=== PATIENT | female | born 1960 | race Caucasian/White ===

== ENCOUNTER 2023-02-19 12:17 | Outpatient (OUT) | payer MEDICARE, SELFPAY ==
[2023-02-19 12:47] LABS: Basophils Absolute Auto 0.1 10^3/uL (0.0-0.1); Basophils Percent Auto 1.3 % (0.2-2.0); Eosinophils Absolute Auto 0.9 10^3/uL (0.0-0.7); Eosinophils Percent Auto 12.5 % (0.9-7.0); Hematocrit 43.8 % (36.0-48.0); Hemoglobin 14.7 g/dL (12.0-16.0); Immature Granulocytes Abs Auto 0.03 10^3/uL (0.00-0.03); Immature Granulocytes Pct Auto 0.4 % (0.0-0.5); Lymphocytes Absolute Auto 1.7 10^3/uL (1.2-3.8); Lymphocytes Percent Auto 25.2 % (20.5-60.0); Mean Corpuscular HGB Conc 33.6 g/dL (29.9-35.2); Mean Corpuscular Hemoglobin 30.2 pg (26.7-34.0); Mean Corpuscular Volume 89.9 fL (81.0-99.0); Mean Platelet Volume 9.9 fL (9.5-13.5); Monocytes Absolute Auto 0.5 10^3/uL (0.3-0.8); Monocytes Percent Auto 6.9 % (1.7-12.0); Neutrophils Absolute Auto 3.6 10^3/uL (1.4-6.5); Neutrophils Percent Auto 53.7 % (43.0-75.0); Platelet Count 214 10^3/uL (150-450); Red Blood Count 4.87 10^6/uL (4.20-5.40); Red Cell Distribution Width 12.6 % (11.0-15.0); White Blood Count 6.8 10^3/uL (4.0-11.0)
[2023-02-19 14:21] LABS: Estimated Average Glucose 111 mg/dL; Glycohemoglobin A1C 5.5 % (4.5-6.2)
[2023-02-19 15:42] LABS: Alanine Aminotransferase 33 U/L (14-59); Albumin Globulin Ratio 1.3; Albumin Level 3.9 g/dL (3.4-5.0); Alkaline Phosphatase 64 U/L (46-116); Anion Gap 12.6; Aspartate Amino Transferase 15 U/L (15-37); BUN Creatinine Ratio 23.7; Bilirubin Total 0.4 mg/dL (0.2-1.0); Calcium 9.2 mg/dL (8.5-10.1); Carbon Dioxide 27.4 mmol/L (21.0-32.0); Chloride 106 mmol/L (98-107); Chol HDL Ratio 5.3; Cholesterol 205 mg/dL (<=200); Estimated GFR (African America >60 (>=60); Estimated GFR (Non-African Ame >60 (>=60); Free T3 2.59 pg/mL (2.18-3.98); Globulin 2.9 g/dL; Glucose 101 mg/dL (74-106); HDL Cholesterol 39 mg/dL (40-60); Sodium 142 mmol/L (136-145); Thyroid Stimulating Hormone 1.244 uIU/mL (0.358-3.740); Total Protein 6.8 g/dL (6.4-8.2); Triglycerides 178 mg/dL (<=150); VLDL CHOLESTEROL 35.6 mg/dL
== END 2023-02-19 12:18 | disposition home or self-care (01) ==
LOC: LAB 12:22
PROVIDERS: PCP Family Medicine; Visit Provider Family Medicine
DX: I73.9 Peripheral vascular disease, unspecified (principal); R73.9 Hyperglycemia, unspecified; E78.5 Hyperlipidemia, unspecified; R73.09 Other abnormal glucose; D64.9 Anemia, unspecified; E55.9 Vitamin D deficiency, unspecified; I10 Essential (primary) hypertension
CPT/HCPCS: 36415; 80053; 80061; 82306; 83036; 83540; 84436; 84443; 84481; 85025

== ENCOUNTER 2023-05-24 15:43 | Outpatient (OUT) | payer MEDICARE, MEDICAID, SELFPAY ==
[2023-05-24 16:13] LABS: Basophils Absolute Auto 0.1 10^3/uL (0.0-0.1); Basophils Percent Auto 1.2 % (0.2-2.0); Eosinophils Absolute Auto 0.8 10^3/uL (0.0-0.7); Eosinophils Percent Auto 11.2 % (0.9-7.0); Hematocrit 44.8 % (36.0-48.0); Hemoglobin 14.9 g/dL (12.0-16.0); Immature Granulocytes Abs Auto 0.01 10^3/uL (0.00-0.03); Immature Granulocytes Pct Auto 0.1 % (0.0-0.5); Lymphocytes Absolute Auto 1.6 10^3/uL (1.2-3.8); Lymphocytes Percent Auto 22.5 % (20.5-60.0); Mean Corpuscular HGB Conc 33.3 g/dL (29.9-35.2); Mean Corpuscular Hemoglobin 29.9 pg (26.7-34.0); Mean Corpuscular Volume 89.8 fL (81.0-99.0); Monocytes Absolute Auto 0.4 10^3/uL (0.3-0.8); Monocytes Percent Auto 5.9 % (1.7-12.0); Neutrophils Absolute Auto 4.3 10^3/uL (1.4-6.5); Neutrophils Percent Auto 59.1 % (43.0-75.0); Platelet Count 229 10^3/uL (150-450); Red Blood Count 4.99 10^6/uL (4.20-5.40); Red Cell Distribution Width 12.6 % (11.0-15.0); White Blood Count 7.3 10^3/uL (4.0-11.0)
[2023-05-24 16:27] LABS: INR <0.93; Partial Thromboplastin Time 26.5 sec (22.3-36.2); Prothrombin Time 9.7 sec (9.0-11.6)
== END 2023-05-24 15:44 | disposition home or self-care (01) ==
LOC: LAB 15:44
PROVIDERS: PCP Family Medicine; Visit Provider Family Medicine
DX: H47.022 Hemorrhage in optic nerve sheath, left eye (principal)
CPT/HCPCS: 36415; 85025; 85610; 85730

== ENCOUNTER 2023-06-25 13:00 | Outpatient (OUT) | payer MEDICARE, SELFPAY ==
--- NOTE | 2023-06-25 13:06 | MM_ITS ---
Patient Name: LINDSEY LESTER MR#: [id number] : 1960 Exam Date: 06/25/2023 Ordering Doctor: DR Quinn Zamarripa . RADIOLOGY REPORT PROCEDURE: MM TOMOSYNTHESIS DIAGNOSTIC BI, 06/25/2023, 13:10 US BREAST RT LIMITED, 06/25/2023, 12:28 COMPARISON: MG MAMM SCREEN 3D JUANITA CAD, 06/16/2021. MG MAMM SCREEN JUANITA W CAD, 05/02/2018. MG MAMM SCREEN JUANITA W CAD, 02/05/2017. MG MAMM JUANITA SCRN W CAD DIG, 03/22/2015. INDICATIONS: Breast Lump N63.0 Calculator Name NCI Breast Cancer Risk Assessment Tool 5 Year Breast Cancer Risk 2.90% Lifetime Breast Cancer Risk 14.40% Personal Breast Cancer No Personal Ovarian Cancer No Treatments None Family Cancers Mother with breast cancer at age 60; Mother with pancreatic cancer at age 60; Father with prostate cancer at age 69; Aunt-maternal with breast cancer at age 60; Aunt-maternal with neck cancer at age 50; Aunt-paternal with unknown cancer at age 80. LOCATION: [facility] BREAST COMPOSITION: Scattered areas fibroglandular density. FINDINGS: DIAGNOSTIC CATEGORY 2--BENIGN FINDING: RIGHT BREAST: No significant suspicious finding on mammography; no significant change has occurred. Ultrasound evaluation within the axillary region at site of palpable lump demonstrates normal appearing fibroglandular tissue; no suspicious findings. LEFT BREAST: No significant suspicious finding. No significant change has occurred. RECOMMENDATIONS: ROUTINE MAMMOGRAM AND CLINICAL EVALUATION IN 12 MONTHS. PLEASE NOTE: A NORMAL MAMMOGRAM DOES NOT EXCLUDE THE POSSIBILITY OF BREAST CANCER. A CLINICALLY SUSPICIOUS PALPABLE LUMP SHOULD BE BIOPSIED. Dictated by: Mario Reese M.D. on 06/25/2023 at 13:41 Approved by: Mario Reese M.D. on 06/25/2023 at 13:46
--- OUTSIDE RECORDS SUMMARY | 2023-06-25 13:06 | XMS_ITS | CCD ---
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 Name Role Phone Wiley Zamarripa Primary Care Physician MD Quinton ROB Attending Unavailable NILLKody Attending Unavailable Hoy PROVIDER, Wiley Referring Unavailabl e Hoy PROVIDER, Wiley Referring Unavailabl e NILL, Kody Abebe Attending Unavailable NILL, Kody Abebe Attending Unavailable HOY ., DR JAMA Admitting Unavailable HOY ., DR JAMA Attending Unavailable HOY ., DR JAMA Consulting Unavailable HOY ., DR JAMA Primary Care Unavailable HOY ., DR JAMA Admitting Unavailable HOY ., DR JAMA Attending Unavailable HOY ., DR JAMA Consulting Unavailable HOY ., DR JAMA Primary Care Unavailable ZIEBER, DR MICHELLE Abebe Consulting Unavailable HOY ., DR JAMA Primary Care Unavailable HIGHLANDERMELVI Admitting Unavailable ZIEBER, DR MICHELLE Abebe Consulting Unavailable HIGHLANDERMELVI Attending Unavailable HIGHLANDERMELVI Consulting Unavailable HOY ., DR JAMA Primary Care Unavailable HIGHLANDERMELVI Admitting Unavailable HIGHLANDERMELVI Attending Unavailable HIGHLMELVI PENNINGTON Consulting Unavailable HOY ., DR JAMA Admitting Unavailable HOY ., DR JAMA Attending Unavailable HOY ., DR JAMA Consulting Unavailable HOY ., DR JAMA Primary Care Unavailable NILL ., DR GATES Admitting Unavailable HOY ., DR JAMA Primary Care Unavailable NILL ., DR GATES Attending Unavailable NILL ., DR GATES Consulting Unavailable HOY ., DR JAMA Primary Care Unavailable NILL ., DR GATES Admitting Unavailable NILL ., DR GATES Attending Unavailable NILL ., DR GATES Consulting Unavailable JUAN BHATT Consulting Unavailable GEMBUS, CARLOS Consulting Unavailable HOY ., DR JAMA Admitting Unavailable HOY ., DR JAMA Attending Unavailable HOY ., DR JAMA Primary Care Unavailable Allergies Allergy Classification Reported Allergen(s) Allergy Type Date of Onset Reaction(s) Facility (2 sources) Acetaminophen / oxyCODONE; Translations: [acetaminophen-ox ycodone] Drug Allergy Vomiting (disorder) [facility] (2 sources) Azithromycin; Translations: [azithromycin] Drug Allergy Vomiting (disorder) [facility] (2 sources) Meperidine; Translations: [meperidine] Drug Allergy Projectile vomiting (disorder) [facility] (2 sources) Azithromycin Drug Allergy 3 [facility] (2 sources) Meperidine Drug Allergy 3 [facility] (1 source) oxyCODONE Drug Allergy [facility] Medications Current Medications Medication Drug Class(es) Dates Sig (Normalized) Sig (Original) aspirin 81 mg delayed release oral tablet (1 source) Platelet Aggregation Inhibitor, Nonsteroidal Anti-inflammatory Drug Start: 02-28-2022 take 1 tablet by mouth once daily aspirin 81 mg Oral EC Tab 81 mg = 1 tab(s), Oral, Daily, Refills(s) 0 Start Date: 02/28/22 Status: Ordered carvedilol 25 mg oral tablet (1 source) alpha-Adrenergic Sena, beta-Adrenergic Sena Start: 02-23-2022 take 1 tablet by mouth twice daily Coreg 25 mg Tab 25 mg = 1 tab(s), Oral, BID, Refills(s) 0 Start Date: 02/23/22 Status: Ordered diclofenac sodium 75 mg delayed release oral tablet (1 source) Nonsteroidal Anti-inflammatory Drug Start: 02-23-2022 take 1 tablet by mouth twice daily Diclofenac 75mg Tab-DR = 1 tab(s), Oral, BID, Refills(s) 0 Start Date: 02/23/22 Status: Ordered DULoxetine 60 mg delayed release oral capsule (1 source) Serotonin and Norepinephrine Reuptake Inhibitor Start: 12-26-2020 take 1 capsule by mouth once daily duloxetine 60 mg Cap-DR = 1 cap(s), Oral, Daily, (do not crush or chew), # 30 cap(s), Refills(s) 0 Start Date: 12/26/20 Status: Ordered Evening Akron Oil oral capsule (1 source) Start: 12-22-2020 Evening Akron Oil oral capsule Refill(s) 0 Start Date: 12/22/20 Status: Ordered ferrous sulfate 325 mg delayed release oral tablet (1 source) Start: 02-23-2022 take 1 tablet by mouth twice daily ferrous sulfate 325 mg oral enteric coated tablet 325 mg = 1 tab(s), Oral, BID, Refills(s) 0 Start Date: 02/23/22 Status: Ordered lamoTRIgine 25 mg chewable tablet (1 source) Mood Stabilizer, Anti-epileptic Agent Start: 12-22-2020 take 1 tablet by mouth twice daily lamotrigine 25 mg oral tablet, dispersible 25 mg = 1 tab(s), Oral, BID, # 60 tab(s), Refills(s) 0 Start Date: 12/22/20 Status: Ordered Multi Vitamin+ (1 source) Start: 12-26-2020 Multi Vitamin+ 1, Oral, Daily, Refill(s) 0 Start Date: 12/26/20 Status: Ordered omeprazole 40 mg delayed release oral capsule (1 source) Proton Pump Inhibitor Start: 12-22-2020 take 1 capsule by mouth once daily omeprazole 40 mg Cap-DR 40 mg = 1 cap(s), Oral, Daily, # 90 cap(s), Refills(s) 0 Start Date: 12/22/20 Status: Ordered piroxicam 20 mg oral capsule (1 source) Nonsteroidal Anti-inflammatory Drug Start: 12-22-2020 take 1 capsule by mouth once daily piroxicam 20 mg oral capsule 20 mg = 1 cap(s), Oral, Daily, # 30 cap(s), Refills(s) 0 Start Date: 12/22/20 Status: Ordered Simvastatin (1 source) HMG-CoA Reductase Inhibitor Start: 02-28-2022 simvastatin Refills(s) 0 Start Date: 02/28/22 Status: Ordered sucralfate 1000 mg oral tablet (1 source) Aluminum Complex Start: 12-22-2020 take 1 tablet by mouth four times daily Carafate 1 gram Tab 1 gm = 1 tab(s), Oral, QID, # 120 tab(s), Refills(s) 0 Start Date: 12/22/20 Status: Ordered 24 hr verapamil hydrochloride 360 mg extended release oral capsule (1 source) Calcium Channel Sena Start: 12-22-2020 take 1 capsule by mouth once daily verapamil 360 mg ER Cap 360 mg = 1 cap(s), Oral, Daily, # 30 cap(s), Refills(s) 0 Start Date: 12/22/20 Status: Ordered Vitamin D3 2000 intl units oral tablet (1 source) Start: 02-23-2022 take 1 tablet by mouth once daily Vitamin D3 2000 intl units oral tablet 50 mcg = 1 tab(s), Oral, Daily, Refills(s) 0 Start Date: 02/23/22 Status: Ordered Problems Active Problems Problem Classification Problem Date Documented Da te Episodic/Chronic Abdominal hernia (1 source) Hiatal hernia 12-22-2020 Episodic Abdominal pain (1 source) Flank pain 12-26-2020 Episodic Calculus of urinary tract (1 source) Kidney stone 12-26-2020 Episodic Conditions associated with dizziness or vertigo (1 source) Vertigo 12-22-2020 Episodic Diabetes mellitus with complications (5 sources) Neuropathy due to diabetes mellitus; Translations: [Type 2 diabetes mellitus with diabetic neuropathy, unspecified] Onset: 2 02-23-2022 Chronic Diabetes mellitus without complication (2 sources) Diabetes mellitus; Translations: [Type 2 diabetes mellitus without complications] Onset: 2 02-23-2022 Chronic Disorders of lipid metabolism (2 sources) Hyperlipidemia; Translations: [Hyperlipidemia, unspecified] Onset: 2 12-22-2020 Chronic Diverticulosis and diverticulitis (2 sources) Diverticulosis of colon; Translations: [Diverticulosis of large intestine without perforation or abscess without bleeding] Onset: 2 12-22-2020 Chronic Esophageal disorders (2 sources) Gastroesophageal reflux disease; Translations: [Gastro-esophageal reflux disease without esophagitis] Onset: 2 12-22-2020 Chronic Essential hypertension (2 sources) Essential hypertension; Translations: [Essential (primary) hypertension] Onset: 2 12-22-2020 Chronic Headache; including migraine (1 source) Migraine 02-23-2022 Chronic Mood disorders (1 source) Depressive disorder 12-22-2020 Chronic Nutritional deficiencies (2 sources) Vitamin D deficiency; Translations: [Vitamin D deficiency, unspecified] Onset: 2 12-22-2020 Chronic Osteoarthritis (1 source) Arthritis 12-22-2020 Chronic Other circulatory disease (4 sources) Other specified symptoms and signs involving the circulatory and respiratory systems; Translations: [OTH SPEC SX SIGNS INVLV CIRC RS] Onset: 3 Episodic Other connective tissue disease (1 source) Muscle pain 12-22-2020 Episodic Other gastrointestinal disorders (1 source) Abnormal feces; Translations: [Other fecal abnormalities] Onset: 2 Episodic Other gastrointestinal disorders (1 source) Dysphagia 12-22-2020 Episodic Other gastrointestinal disorders (1 source) Occult blood in stools 02-28-2022 Episodic Other lower respiratory disease (1 source) Dyspnea 12-22-2020 Episodic Other nervous system disorders (1 source) Dysarthria 12-22-2020 Episodic Other nutritional; endocrine; and metabolic disorders (1 source) Body mass index 30+ - obesity 02-28-2022 Chronic Other skin disorders (1 source) Excessive sweating 12-22-2020 Episodic Paralysis (1 source) Hemiplegia of nondominant side 02-23-2022 Chronic Residual codes; unclassified (1 source) Tobacco user; Translations: [Tobacco use] Onset: 2 Episodic Residual codes; unclassified (1 source) Edema of lower extremity 12-22-2020 Episodic Screening and history of mental health and substance abuse codes (1 source) Tobacco use and exposure - finding 02-28-2022 Chronic Spondylosis; intervertebral disc disorders; other back problems (3 sources) Disorder of lumbar disc; Translations: [Spondylosis] Onset: 2 12-22-2020 Chronic Substance-related disorders (6 sources) Smoker; Translations: [Nicotine dependence, cigarettes, uncomplicated] Onset: 2 12-22-2020 Chronic Unclassified (4 sources) CONTACT W/AND (SUSP) EXPOS COVID-19; Translations: [CONTACT W/AND (SUSP) EXPOS COVID-19] Onset: 2 Past or Other Problems Problem Classification Problem Date Documented Da te Episodic/Chronic Deficiency and other anemia (1 source) Anemia, unspecified; Translations: [ANEMIA UNSPECIFIED] Onset: 02-13-2022 Episodic Diabetes mellitus without complication (1 source) Other abnormal glucose; Translations: [OTHER ABNORMAL GLUCOSE] Onset: 02-13-2022 Episodic Genitourinary symptoms and ill-defined conditions (3 sources) Adolfo hematuria; Translations: [Urgent desire to urinate] Onset: 02-13-2022 12-26-2020 Episodic Other aftercare (1 source) [facility] (current) use of aspirin; Translations: [[facility] CURRENT USE OF ASPIRIN] Onset: 04-29-2022 Episodic Other aftercare (1 source) 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 (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 therapy; Translations: [OTH [facility] CURRENT DRUG THERAPY] Onset: 04-29-2022 Episodic Other connective tissue disease (4 sources) Pain in left foot; Translations: [PAIN IN LEFT FOOT] Onset: 05-09-2022 Episodic Other gastrointestinal disorders (4 sources) Other fecal abnormalities; Translations: [OTHER FECAL ABNORMALITIES] Onset: 04-25-2022 Episodic Unclassified (1 source) CONTACT W/AND (SUSP) EXPOS COVID-19; Translations: [CONTACT W/AND (SUSP) EXPOS COVID-19] Onset: 02-01-2022 Results Test Name Value Interpretation Reference Range Facility Outside Colonoscopyon 2021 Outside Colonoscopy [id number] .00CD:127 Normal [facility] Lab Reportson 04-23-2022 Lab Reports [id number] .00CD:127 Normal [facility] Covid-19 PCR (CVDTBH)on SARS-CoV-2 (COVID-19) RNA JASWANT+probe Ql (Unsp spec) Not detected Normal NOT DETECTED [facility] Comment on above: Result Comment: This test is not yet approved or cleared by the [place] FDA. When there are no FDA-approved or cleared tests available, and other criteria are met, FDA can make tests available under an emergency access mechanism called an Emergency Use Authorization (EUA). The EUA for this test is supported by the Geological E Logger of Health and Human Service's (HHS's) declaration that circumstances exist to justify the emergency use of in vitro diagnostics for the detection and/or diagnosis of the virus that causes COVID-19. This EUA will remain in effect (meaning this test can be used) for the duration of the COVID-19 declaration justifying emergency of IVDs, unless it is terminated or revoked by FDA (after which the test may no longer be used). When diagnostic testing is negative, the possibility of a false negative should be considered in the context of a patient's recent exposures and the presence of clinical signs and symptoms consistent with SARS-CoV-2. Performed By: #### [facility] ####[facility] [address] [place], [place] [address]Eg. Arias Michel Pre-Certification Formon Pre-Certification Form [id number]:127 [facility] Consent for Procedure/Surger yon 03-01-2022 Consent for Procedure/Surgery [id number] .00CD:127 [facility] Ambulatory Visit Summaryon 1 Ambulatory Visit Summary LUIS LESTER :1960 Visit Date:02/28/2022 Ambulatory Visit Instructions Your Care Team Attending Physician - Kody HARTMAN MD Primary Care Physician - Wiley Zamarripa MD Referring Physician - Wiley Zamarripa MD This Is Your Medications List Contact prescribing physician if questions or concerns aspirin (aspirin 81 mg Oral EC Tab) carvedilol (Coreg 25 mg Tab) cholecalciferol (Vitamin D3 2000 intl units oral tablet) diclofenac (Diclofenac 75mg Tab-DR) duloxetine (duloxetine 60 mg Cap-DR) evening primrose (Evening Akron Oil oral capsule) ferrous sulfate (ferrous sulfate 325 mg oral enteric coated tablet) lamotrigine (lamotrigine 25 mg oral tablet, dispersible) multivitamin (Multi Vitamin+) omeprazole (omeprazole 40 mg Cap-DR) piroxicam (piroxicam 20 mg oral capsule) simvastatin sucralfate (Carafate 1 gram Tab) verapamil (verapamil 360 mg ER Cap) Procedures Performed Arthroscopy of knee (10/23/2019), Chondroplasty (10/23/2019), Meniscectomy (10/23/2019), Appendectomy, Carpal tunnel release, section, section, Colonoscopy, Dilation and esophageal intubation, Extraction of wisdom tooth, Lumbar discectomy, ALANNA BSO - Total abdominal hysterectomy and bilateral salpingo-oophorectomy , Tonsillectomy. Discharge Vitals Heart Rate (Peripheral) 84 Respiratory Rate 16 Blood Pressure 126/82 Height 158 cm Height 62 in Weight 75.9 kg Weight 166.98 lb BMI 30.4 Medications What How Much When Instructions Unchanged aspirin (aspirin 81 mg Oral EC Tab) 1 Tablets By Mouth Every day Contact prescribing physician if questions or concerns Unchanged carvedilol (Coreg 25 mg Tab) 1 Tablets By Mouth 2 times a day Contact prescribing physician if questions or concerns Unchanged cholecalciferol (Vitamin D3 2000 intl units oral tablet) 1 Tablets By Mouth Every day Contact prescribing physician if questions or concerns Unchanged diclofenac (Diclofenac 75mg Tab-DR) 1 Tablets By Mouth 2 times a day Contact prescribing physician if questions or concerns Unchanged duloxetine (duloxetine 60 mg Cap-DR) 1 Capsules By Mouth Every day (do not crush or chew) Contact prescribing physician if questions or concerns Unchanged evening primrose (Evening Akron Oil oral capsule) Contact prescribing physician if questions or concerns Unchanged ferrous sulfate (ferrous sulfate 325 mg oral enteric coated tablet) 1 Tablets By Mouth 2 times a day Contact prescribing physician if questions or concerns Unchanged lamotrigine (lamotrigine 25 mg oral tablet, dispersible) 1 Tablets By Mouth 2 times a day Contact prescribing physician if questions or concerns Unchanged multivitamin (Multi Vitamin+) 1 By Mouth Every day Contact prescribing physician if questions or concerns Unchanged omeprazole (omeprazole 40 mg Cap-DR) 1 Capsules By Mouth Every day Contact prescribing physician if questions or concerns Unchanged piroxicam (piroxicam 20 mg oral capsule) 1 Capsules By Mouth Every day Contact prescribing physician if questions or concerns Unchanged simvastatin Contact prescribing physician if questions or concerns Unchanged sucralfate (Carafate 1 gram Tab) 1 Tablets By Mouth 4 times a day Contact prescribing physician if questions or concerns Unchanged verapamil (verapamil 360 mg ER Cap) 1 Capsules By Mouth Every day Contact prescribing physician if questions or concerns Allergies Demerol (Projectile vomiting) Percocet (Vomiting) Zithromax (Vomiting) Problems Ongoing - Any problem that you are currently receiving treatment for. Arthritis BMI 30.0-30.9,adult Depression Diabetes Diabetic neuropathy Diverticular disease of colon Dysarthria Dysphagia Dyspnea Essential hypertension Excessive sweating Flank pain GERD (gastroesophageal reflux disease) Gross hematuria Hemiplegia of nondominant side due to acute cerebrovascular accident (CVA) Hiatal hernia Hyperlipidemia Kidney stone Leg edema Lumbar disc disease Migraines Myalgia Smoker Spondylosis Urgency of urination Vertigo Vitamin D deficiency Normal [facility] CT LUNG CANCER SCREENINGon 0 02-14-2022 CT LUNG CANCER SCREENING EXAMINATION: CT LUNG CANCER SCREENING HISTORY: Tobacco dependence caused by cigarettes COMPARISON: CT chest 02/27/2019 TECHNIQUE: Axial, Coronal, and Sagittal images were created without the administration of IV contrast material. Dose reduction techniques were achieved by using automated exposure control and/or adjustment of mA and/or kV according to patient size and/or use of iterative reconstruction technique. FINDINGS: LUNGS: No visible pulmonary disease. PLEURA: No mass, effusion, or pneumothorax. VASCULATURE: No abnormality. ROGER: No mass or pathologic adenopathy. MEDIASTINUM: No mass or pathologic adenopathy. CARDIAC: No enlargement, pericardial thickening, or significant calcification. AORTA: No aneurysm or dissection. CHEST WALL: No mass or axillary adenopathy BONES: No bone lesion or fracture. LIMITED ABDOMEN: Large hiatal hernia. Stable approximately 2.0 cm left adrenal mass. OTHER: Negative. IMPRESSION: 1. Lung-RADS Category 1 Negative. No nodules and definitely benign nodules. Continue annual screening with LDCT in 12 months. Electronically authenticated by: MICHELLE ZHANG Date: 2022-02-14 14:42 Normal [facility] Physician Referralon 022 Physician Referral [id number] .[id number]:127 Normal [facility] CULTURE URINEon 02-10-2022 CULTURE URINE Isolate 1 Escherichia coli 75,000 cfu/mL of ORGANISM 1 Escherichia coli ANTIBIOTIC M.I.C RX STATUS Ampicillin >=32 R F Ampicillin/Sulbactam >=32 R F Piperacillin/Tazobact am <=4 S F Cefazolin <=4 S F Ceftazidime <=1 S F Ceftriaxone <=1 S F Ertapenem <=0.5 S F Imipenem <=0.25 S F Amikacin <=2 S F Gentamicin <=1 S F Tobramycin <=1 S F Ciprofloxacin >=4 R F Levofloxacin >=8 R F Nitrofurantoin <=16 S F Trimethoprim/Sulfamet hoxazole <=20 S F Normal [facility] Comment on above: Performed By: #### U RCX #### [facility] [address] [place] [address] Dr. Arias Michel INSULINon 02-09-2022 Insulin 16.8 uIU/mL Normal 2.6-24.9 [facility] Comment on above: Performed By: #### I NSULIN #### [facility] [address] [address] [address] Arias Michel T4, T3U, FTI LABCORPon 02-09 Free Thyroxine Index 1.7 Normal 1.2-4.9 [facility] Comment on above: Performed By: #### T HYLC #### [facility] [address] [place] [address] Dr. Arias Michel T3 Uptake 25 % Normal 24-39 [facility] Comment on above: Performed By: #### T HYLC #### [facility] [address] [place] [address] Dr. Arias Michel T4 [Mass/Vol] 6.6 ug/dL Normal 4.5-12.0 [facility] [place] [facility] Comment on above: Performed By: #### T HYLC #### [facility] [address] [place] [address] Dr. Arias Michel CBC AUTO DIFFon 02-08-2022 BASO # 0.1 103/ul Normal 0.0-0.1 [facility] Comment on above: Performed By: #### C BC ####[facility] [address] [address]Dr. Arias Michel Basophils/100 WBC (Bld) 1.7 % Normal 0.2-2.0 [facility] Comment on above: Performed By: #### C BC ####[facility] [address] [address]Dr. Arias Michel EO # 0.7 103/ul Normal 0.0-0.7 [facility] Comment on above: Performed By: #### C BC ####[facility] [address] [id number]. Arias Michel Eosinophils/100 WBC (Bld) 11.4 % Critically high 0.9-7.0 [facility] Comment on above: Performed By: #### C BC ####[facility] [address] [address]Dr. Arias Michel Erythrocyte distribution width (RBC) [Ratio] 13.1 % Normal 11.0-15.0 [facility] Comment on above: Performed By: #### C BC ####[facility] [address] [place], [place] [address]Dr. Arias Michel Hematocrit (Bld) [Volume fraction] 45.0 % Normal 36.0-48.0 [facility] Comment on above: Performed By: #### C BC ####[facility] [address] [place], [place] [address]Dr. Arias Michel Hemoglobin (Bld) [Mass/Vol] 14.8 g/dL Normal 12.0-16.0 [facility] Comment on above: Performed By: #### C BC ####[facility] [address] [address]Dr. Arias Michel IG # 0.01 10e3/ul Normal 0.00-0.03 [facility] Comment on above: Performed By: #### C BC ####[facility] [address] [place], [place] [address]Dr. Arias Michel IG % 0.2 % Normal 0.0-0.5 [facility] Comment on above: Performed By: #### C BC ####[facility] [address] [place], [place] [id number]. Arias Michel LYMPH # 1.6 103/ul Normal 1.2-3.8 [facility] Comment on above: Performed By: #### C BC ####[facility] [address] [place], [place] [address]Dr. Arias Michel Lymphocytes/100 WBC (Bld) 26.9 % Normal 20.5-60.0 [facility] Comment on above: Performed By: #### C BC ####[facility] [address] [id number]. Arias Michel MANUAL DIFF REQ NO Normal [facility] Comment on above: Performed By: #### C BC ####[facility] [address] [id number]. Arias Michel MCH (RBC) [Entitic mass] 29.7 pg Normal 26.7-34.0 [facility] Comment on above: Performed By: #### C BC ####[facility] [address] [address]Dr. Arias Michel MCHC (RBC) [Mass/Vol] 32.9 g/dL Normal 29.9-35.2 [facility] Comment on above: Performed By: #### C BC ####[facility] [address] [address]Dr. Arias Anand MCV (RBC) [Entitic vol] 90.2 fL Normal 81.0-99.0 [facility] Comment on above: Performed By: #### C BC ####[facility] [address] [address]Dr. Arias Anand MONO # 0.5 103/ul Normal 0.3-0.8 [facility] Comment on above: Performed By: #### C BC ####[facility] [address] [address]Dr. Idaniajasmyne Michel Monocytes/100 WBC (Bld) 7.8 % Normal 1.7-12.0 [facility] Comment on above: Performed By: #### C BC ####[facility] [address] [address]Dr. Arias Michel NEUT # 3.0 103/ul Normal 1.4-6.5 [facility] Comment on above: Performed By: #### C BC ####[facility] [address] [place], [place] [address]Dr. Arias Michle Neutrophils/100 WBC (Bld) 52.0 % Normal 43.0-75.0 [facility] Comment on above: Performed By: #### C BC ####[facility] [address] [id number]. Arias Michel Platelet mean volume (Bld) [Entitic vol] 9.7 fL Normal 9.5-13.5 [facility] Comment on above: Performed By: #### C BC ####[facility] [address] [id number]. Arias Michel PLT 228 103/ul Normal 150-450 [facility] Comment on above: Performed By: #### C BC ####[facility] [address] [id number]. Arias Michel RBC 4.99 106/ul Normal 4.20-5.40 [facility] Comment on above: Performed By: #### C BC ####[facility] [address] [address]Dr. Arias Michle WBC 5.8 103/ul Normal 4.0-11.0 [facility] Comment on above: Performed By: #### C BC ####[facility] [address] [address]DrToan Michel GLYCOHEMOGLOBIN A1Con 2021 ADA RECOMMENDATION SEE BELOW Normal [facility] Comment on above: Result Comment: ADA RECOMMENDED LIMIT 4.0 - 6.0 ADA THERAPEUTIC TARGET < 7.0 ACTION SUGGESTED > 7.0 Performed By: #### A 1C #### [facility] [address] [address] [address] Arias Michel Glucose [Mass/Vol] 105 mg/dL Normal [facility] Comment on above: Performed By: #### A 1C #### [facility] [address] [address] [address] Arias Michel HbA1c (Bld) [Mass fraction] 5.3 % Normal 4.5-6.2 [facility] Comment on above: Performed By: #### A 1C #### [facility] [address] [address] [address] Arias Michel IRONon 02-08-2022 Iron [Mass/Vol] 68.0 ug/dL Normal 50.0-170.[address] [facility] Comment on above: Performed By: #### I BYRON, VITAD #### [facility] [address] [address] [address] Arias Michel LIPID PROFILEon 02-08-2022 CHOL-HDL RATIO NORM SEE BELOW Normal [facility] Comment on above: Result Comment: 3.3 - 4.4 LOW RISK 4.4 - 7.1 AVERAGE RISK 7.1 - 11.0 MODERATE RISK >11.0 HIGH RISK Performed By: #### L IPID, TSH, CMP #### [facility] [address] [address] [address] Arias Michel Cholesterol [Mass/Vol] 269 mg/dL Critically high <=200 [facility] Comment on above: Performed By: #### L IPID, TSH, CMP #### [facility] [address] [address] [address] Arias Michel Cholesterol in HDL [Mass/Vol] 36 mg/dL Critically low 40-60 [facility] Comment on above: Performed By: #### L IPID, TSH, CMP #### [facility] [address] [address] [address] Arias Michel Cholesterol in LDL [Mass/Vol] 185.4 mg/dL Normal [facility] Comment on above: Performed By: #### L IPID, TSH, CMP #### [facility] [address] [address] [address] Arias Michel Cholesterol.total/Cho lesterol in HDL [Mass ratio] 7.5 {ratio} Normal [facility] Comment on above: Performed By: #### L IPID, TSH, CMP #### [facility] [address] [address] [address] Arias Michel HDL NORMAL > or = 60 mg/dl - LO W CARDIOVASCULAR RISK <40 mg/dl - HIGH CARDIOVASCULAR RISK Normal [facility] Comment on above: Performed By: #### L IPID, TSH, CMP #### [facility] [address] [address] [address] Arias Michel LDL CALC NORMAL SEE BELOW Normal [facility] Comment on above: Result Comment: <100 mg/dl OPTIMAL 100 - 129 mg/dl NEAR OR ABOVE OPTIMAL 130 - 159 mg/dl BORDERLINE HIGH 160 - 189 mg/dl HIGH >190 mg/dl VERY HIGH Performed By: #### L IPID, TSH, CMP #### [facility] [address] [address] [address] Arias Michel Triglyceride [Mass/Vol] 238 mg/dL Critically high <=150 [facility] Comment on above: Performed By: #### L IPID, TSH, CMP #### [facility] [address] [address] [address] Arias Michel VLDL CALC 47.6 mg/dL Normal [facility] Comment on above: Performed By: #### L IPID, TSH, CMP #### [facility] [address] [address] [address] Arias Michel PROF 14(COMP METB)on 022 Albumin [Mass/Vol] 3.8 g/dL Normal 3.4-5.0 [facility] Comment on above: Performed By: #### L IPID, TSH, CMP ####[facility] [address] [address]DrToan Michel Albumin/Globulin [Mass ratio] 1.3 {ratio} Normal [facility] Comment on above: Performed By: #### L IPID, TSH, CMP ####[facility] [address] [address]DrToan Michel ALP [Catalytic activity/Vol] 73 U/L Normal 46-116 [facility] Comment on above: Performed By: #### L IPID, TSH, CMP ####[facility] [address] [address]Dr. Arias Michel ALT [Catalytic activity/Vol] 27 U/L Normal 14-59 [facility] Comment on above: Performed By: #### L IPID, TSH, CMP ####[facility] [address] [address]DrToan Michel Anion gap [Moles/Vol] 9.7 mmol/L Normal [facility] Comment on above: Performed By: #### L IPID, TSH, CMP ####[facility] [address] [address]Dr. Arias Michel AST [Catalytic activity/Vol] 13 U/L Critically low 15-37 [facility] Comment on above: Performed By: #### L IPID, TSH, CMP ####[facility] [address] [address]Dr. Arias Michel Bilirubin [Mass/Vol] 0.5 mg/dL Normal 0.2-1.0 [facility] Comment on above: Performed By: #### L IPID, TSH, CMP ####[facility] [address] [place], [place] [address]Dr. Arias Michel Calcium [Mass/Vol] 8.9 mg/dL Normal 8.5-10.1 [facility] Comment on above: Performed By: #### L IPID, TSH, CMP ####[facility] [address] [place], [place] [address]Dr. Arias Michel Chloride [Moles/Vol] 105 mmol/L Normal 98-107 [facility] Comment on above: Performed By: #### L IPID, TSH, CMP ####[facility] [address] [place], [place] [address]Dr. Arias Michel CO2 [Moles/Vol] 29.2 mmol/L Normal 21.0-32.0 [facility] Comment on above: Performed By: #### L IPID, TSH, CMP ####[facility] [address] [place], [place] [address]Dr. Arias Michel Creatinine [Mass/Vol] 0.77 mg/dL Normal 0.55-1.02 [facility] Comment on above: Performed By: #### L IPID, TSH, CMP ####[facility] [address] [place], [place] [address]Dr. Arias Michel EGFR-AF NEPALESE >60 Normal >=60 [facility] Comment on above: Performed By: #### L IPID, TSH, CMP ####[facility] [address] [place], [place] [address]Dr. Arias Michel EGFR-NON AF NEPALESE >60 Normal >=60 [facility] Comment on above: Performed By: #### L IPID, TSH, CMP ####[facility] [address] [address]Dr. Arias Michel Globulin (S) [Mass/Vol] 2.9 g/dL Normal [facility] Comment on above: Performed By: #### L IPID, TSH, CMP ####[facility] [address] [address]Dr. Arias Michel Glucose [Mass/Vol] 95 mg/dL Normal 74-106 [facility] Comment on above: Performed By: #### L IPID, TSH, CMP ####[facility] [address] [place], [place] [address]Dr. Arias Michel Potassium [Moles/Vol] 3.9 mmol/L Normal 3.5-5.1 [facility] Comment on above: Performed By: #### L IPID, TSH, CMP ####[facility] [address] [place], [place] [address]Dr. Arias Michel Protein [Mass/Vol] 6.7 g/dL Normal 6.4-8.2 [facility] Comment on above: Performed By: #### L IPID, TSH, CMP ####[facility] [address] [place], [place] [address]Dr. Arias Michel Sodium [Moles/Vol] 140 mmol/L Normal 136-145 [facility] Comment on above: Performed By: #### L IPID, TSH, CMP ####[facility] [address] [place], [place] [address]Dr. Arias Michel Urea nitrogen [Mass/Vol] 13.0 mg/dL Normal 7.0-18.0 [facility] Comment on above: Performed By: #### L IPID, TSH, CMP ####[facility] [address] [place], [place] [address]Dr. Arias Michel Urea nitrogen/Creatinine [Mass ratio] 16.9 mg/mg Normal [facility] Comment on above: Performed By: #### L IPID, TSH, CMP ####[facility] [address] [address]Toan Michel TSHon 02-08-2022 TSH 1.080 uIU/mL Normal 0.358-3.740 [facility] Comment on above: Performed By: #### L IPID, TSH, CMP ####[facility] [address] [address]DrToan Michel UA RANDOM W/MICROSCOPICon BACTERIA TRACE Abnormal NONE SEEN [facility] Comment on above: Performed By: #### U AMIC #### [facility] [address] [address] [address] Arias Michel Bilirubin Ql (U) Negative Normal NEGATIVE [facility] Comment on above: Performed By: #### U AMIC #### [facility] [address] [place] [address] Dr. Arias Michel CA OX CRYSTALS MODERATE Normal [facility] Comment on above: Performed By: #### U AMIC #### [facility] [address] [place] [address] Dr. Arias Michel CAST NONE SEEN Normal NONE SEEN [facility] Comment on above: Performed By: #### U AMIC #### [facility] [address] [address] [address] Arias Michel Clarity (U) CLEAR Normal CLEAR [facility] Comment on above: Performed By: #### U AMIC #### [facility] [address] [address] [address] Arias Michel Color (U) YELLOW Normal YELLOW [facility] Comment on above: Performed By: #### U AMIC #### [facility] [address] [address] [address] Arias Michel Crystals LM Nom (Urine sed) SEEN Abnormal NONE SEEN [facility] Comment on above: Performed By: #### U AMIC #### [facility] [address] [address] [address] Arias Michel Epithelial cells LM Ql (Urine sed) FEW Abnormal NONE SEEN /RARE [facility] Comment on above: Performed By: #### U AMIC #### [facility] [address] [address] [address] Arias Michel Glucose Ql (U) Negative Normal NEGATIVE [facility] Comment on above: Performed By: #### U AMIC #### [facility] [address] [address] [address] Arias Michel Hemoglobin Ql (U) Negative Normal NEGATIVE [facility] Comment on above: Performed By: #### U AMIC #### [facility] [address] [address] [address] Arias Michel Ketones Ql (U) Negative Normal NEGATIVE [facility] Comment on above: Performed By: #### U AMIC #### [facility] [address] [address] [address] Arias Michel LEUKOCYTES TRACE Abnormal NEGATIVE [facility] Comment on above: Performed By: #### U AMIC #### [facility] [address] [address] [address] Arias Michel MUCOUS SMALL Abnormal NONE SEEN [facility] Comment on above: Performed By: #### U AMIC #### [facility] [address] [address] [address] Arias Michel Nitrite Ql (U) Negative Normal NEGATIVE [facility] Comment on above: Performed By: #### U AMIC #### [facility] [address] [address] [address] Arias Michel pH (U) 6.0 [pH] Normal 5-9 [facility] Comment on above: Performed By: #### U AMIC #### [facility] [address] [address] [address] Arias Michel RBC 2-5 Abnormal 0-2 [facility] Comment on above: Performed By: #### U AMIC #### [facility] [address] [address] [address] Arias Michel SPEC GRAVITY >=1.030 Abnormal 1.005-<=1.025 [facility] Comment on above: Performed By: #### U AMIC #### [facility] [address] [address] [address] Arias Michel UA PROTEIN Negative Normal NEGATIVE/ TRACE [facility] Comment on above: Performed By: #### U AMIC #### [facility] [address] [place] [address] Dr. Arias Michel Urobilinogen Qn (U) 0.2 {Gladis'U}/dL Normal 0.2 - 1. 0 [facility] Comment on above: Performed By: #### U AMIC #### [facility] [address] [place] [address] Dr. Arias Michel WBC 5-10 Abnormal NONE SEEN [facility] Comment on above: Performed By: #### U AMIC #### [facility] [address] [place] [address] Dr. Arias Michel VITAMIN D 25 OHon 02-08-2022 VIT D 25-OH 45.1 ng/mL Normal [facility] Comment on above: Performed By: #### I BYRON VITAD #### [facility] [address] [place] [address] Dr. Arias Michel VIT D RANGES SEE BELOW Normal [facility] Comment on above: Result Comment: <20 ng/mL Vit D deficient 20 - <30 ng/mL Vit D insufficient 30 - 100 ng/mL Vit D sufficient >100 ng/mL Potential Toxicity Performed By: #### I BYRON VITAD #### [facility] [address] [place] [address] Dr. Arias Michel Covid-19 PCR (CVDTB)on 01-18 SARS-CoV-2 (COVID-19) RNA JASWANT+probe Ql (Unsp spec) Not detected Normal NOT DETECTED [facility] Comment on above: Result Comment: This test is not yet approved or cleared by the [place] FDA. When there are no FDA-approved or cleared tests available, and other criteria are met, FDA can make tests available under an emergency access mechanism called an Emergency Use Authorization (EUA). The EUA for this test is supported by the Geological E Logger of Health and Human Service's (HHS's) declaration that circumstances exist to justify the emergency use of in vitro diagnostics for the detection and/or diagnosis of the virus that causes COVID-19. This EUA will remain in effect (meaning this test can be used) for the duration of the COVID-19 declaration justifying emergency of IVDs, unless it is terminated or revoked by FDA (after which the test may no longer be used). When diagnostic testing is negative, the possibility of a false negative should be considered in the context of a patient's recent exposures and the presence of clinical signs and symptoms consistent with SARS-CoV-2. Performed By: #### [facility] #### [facility] [address] [address] [address] Arias Michel Provider Letteron 05-05-2021 Provider Letter May 05, 2021 May 05, 2021 LUIS LESTER [address] [place] [id number] LUIS LESTER 1960 Dear Luis Lester , We have been trying to reach you with no success. You have an appointment with Dr. Rob on 05/15/2021 which will need to be rescheduled since he will be out of the office that day. Please contact the office at the number listed below to get this appointment rescheduled at your earliest convenience. Thank you for your prompt attention to this matter. Sincerely, [facility] [address], [place] [address] [facility] Vital Signs Date Time Vital Sign Value Performing Clinician Maame devi 02-28-2022 15:31-0400 Blood Pressure Location Kody [facility]ITT[employer] [facility] 02-28-2022 15:31-0400 Diastolic blood pressure 82 mm[Hg] Kody SOTOL [facility] 02-28-2022 15:31-0400 Heart rate 84 /min Kody SOTOL [facility] 02-28-2022 15:31-0400 Respiratory rate 16 /min Kody SOTOL [facility] 02-28-2022 15:31-0400 Systolic blood pressure 126 mm[Hg] Kody SOTOL [facility] Encounters Encounter Date Encounter Type Care Provider Facility Start: 05-28-2022 End: 05-29-[address] WILEY ZAMARRIPA . Facility:[facility] Start: 05-09-2022 End: 05-10-[address] WILEY ZAMARRIPA . Facility:[facility] Start: 04-28-2022 Encounter for preprocedural laboratory examination DR KODY HARTMAN . [facility] Start: 04-25-2022 End: 04-26-2022 ambulatory Kody HARTMAN Facility:[id number] Start: 04-21-2022 End: 04-22-[address] KODY HARTMAN . Facility:[facility] Start: 04-21-2022 End: 04-22-2022 Encounter for preprocedural laboratory examination DR KODY HARTMAN . Facility: Start: 02-28-2022 End: 03-01-2022 ambulatory Wiley Zamarripa PROVIDER Facility:[facility] Start: 02-28-2022 End: 02-28-2022 Patient encounter procedure Kody HARTMAN [facility] Start: 02-14-2022 End: 02-15-[address] WILEY ZAMARRIPA . Facility: Start: 02-09-2022 ambulatory Kody HARTMAN Facility :[facility] Start: 02-08-2022 End: 02-09-[address] WILEY ZAMARRIPA . Facility: Start: 02-01-2022 End: 02-01-[address] WILEY ZAMARRIPA . Facility:[facility] Start: 10-19-[address] WILEY ZAMARRIPA . Facili ty:[facility] Start: 05-15-2021 ambulatory MD Quinton ROB Fac ility:[facility] [place] Procedures Date Procedure Procedure Detail Performing Clinician Start: 10-23-2019 Arthroscopy of knee Leif HARTMAN Start: 10-23-2019 Chondrectomy of semi lunar cartilage of knee Kody HARTMAN Comment on above: subtotal medial meni scectomy Start: 10-23-2019 Chondroplasty Kody LIZ Comment on above: chondroplasty medial femoral condyle Appendectomy Kody HARTMAN section Kody NIL L section Kody NIL L Colonoscopy Kody NILL Decompression of med milagros nerve Kody NILL Dilation and inserti on of tube into esophagus Kody NILL Excision of lumbar intervertebral disc Kody NILL Extraction of wisdom tooth M ichferny SOTOL Tonsillectomy Kody NILL Total abdominal hysterectomy with bilateral salpingo-oophorectomy Kody SOTOL Immunizations Immunization Date Immunization Notes Care Provider Fa cili 08-31-2020 SARS-CoV-2 (COVID-19 ) Ad26 vaccine, recombinant Kody HARTMAN [facility] Payers Date Payer Category Payer Unknown [id number] 2.16.8 [id number] 1960 Unknown [id number] 2.16.8 [id number] 1960 Unknown [id number] 2.16.8 [id number] 1960 Unknown [id number] 2.16.84 [id number] 1962 Unknown [id number] 2.16.84 [id number] 1960 Unknown [id number] 2.16.84 [id number] 1960 Unknown [id number] 2.16.84 [id number] 1960 Unknown [id number] 2.16.84 [id number] 1962 Unknown [id number] 2.16.84 [id number] 1960 Unknown [id number] 2.16.84 [id number] 1960 Unknown [id number] 2.16.84 [id number] 1960 Unknown [id number] 2.16.84 [id number] 1957 Medicaid [id number] 1957 Self-pay [id number] 1957 Unknown [id number] Social History Date Type Detail Facility Start: 02-28-2022 Tobacco smoking status Heavy t obacco smoker (finding) [facility] [place] Tobacco smoking status Never [facility] [place] Sex Assigned At Female [facility] [place] Functional Status Date Assessment Result Facility 02-28-2022 Functional Status N/A [facility] Clinical Note 05-11-2022 Note Date & Type Note Facility 05-11-2022 Note PROCEDURE: XR FOOT L T MIN 3 VIEWS HISTORY: Pain in left foot ; third and fourth digit pain COMPARISON: None. FINDINGS: BONES:No fracture, acute abnormality, or significant arthropathy. SOFT TISSUES:No visible soft tissue swelling. EFFUSION:None visible. OTHER: Negative. IMPRESSION: 1. No acute bone abnormality or significant degenerative joint disease. Electronically authenticated by: MICHELLE ZHANG Date: 2022-05-10 22:20 [facility] Clinical Note 04-25-2022 Note Date & Type Note Facility 04-25-2022 Note OPERATIVE NOTE OPERATION DATE: 04/25/2022 PREOPERATIVE DIAGNOSIS: Positive FIT test. POSTOPERATIVE DIAGNOSIS: Sigmoid diverticulosis. PROCEDURE: Colonoscopy to cecum. SURGEON: Kody Hartman M.D. ANESTHESIA: Monitored anesthesia care. ESTIMATED BLOOD LOSS: Zero. INDICATIONS AND CONSENT: Patient is a 61-year-old female with a positive FIT test. Indications, risks, benefits, alternatives of proceeding with colonoscopy were explained extensively to the patient, including the risks of bleeding, colon perforation or anesthetic complications. All of her questions were answered. Informed consent was obtained. PROCEDURE: Patient brought to the operating room, placed in the left lateral decubitus position. Monitored anesthesia care was provided. Rectal exam was performed which showed no masses or blood. The scope was inserted into the anal canal. Under direct visualization was advanced. It was advanced to the cecum where cecal markings were clearly identified. There was noted to be a good prep with some liquid and semi-solid stool throughout the colon that was partially irrigated clear. Upon withdrawal of the scope, mucosal surfaces were carefully examined. There were no mass lesions or polyps. No inflammatory changes or ulcerations. There was moderate sigmoid diverticulosis without inflammatory changes or scarring. The scope was retroflexed in the anal canal. There was no significant hemorrhoidal disease. Scope was then withdrawn. Patient tolerated procedure well, was sent to recovery room in good condition. CC: Wiley Zamarripa M.D. [facility] Note 02-28-2022 Note Date & Type Note Facility 02-28-2022 Note Chief Complaint consultation for positive FIT test [facility] Staff 61 year old female presents on consultation from Dr. Zamarripa for positive FIT test. Denies abdominal or rectal pain. No rectal bleeding or change in bowel habits. Denies nausea or vomiting. No unexplained weight loss. Last colonoscopy completed 03/2017- normal. No known family history of colon cancer. History of Present Illness 61 yo female with h/o DMII, htn, hyperlipidemia, h/o CVA, GERD, referred for positive FIT test; denies change in bms or gross blood in stools, no abd complaints; last EGD and colonoscopy 2016 with hiatal hernia and internal hemorrhoid; abdominal operations significant for appendectomy, , laparoscopy and hysterectomy; on baby asa daily; smokes daily. Review of Systems PHQ Score Initial Depression Screen Score: 0 ROS - Provider Constitutional: no fever, no sweats, no weight loss. Eyes: no glasses, no blurred vision, no visual loss. ENMT: no dentures, no hoarseness, no swallowing difficulties, no hearing loss, no ear infection(s), no nose bleeds. Cardiovascular: normal blood pressure, no chest pain, regular heartbeat, no heart murmur. Respiratory: no shortness of breath, no cough, no asthma, no wheezing. Gastrointestinal: no nausea, no vomiting, no diarrhea, no constipation, no blood in stool, no change in bowel habits, no abdominal pain, no hepatitis. Genitourinary: no kidney stones, no urine infection, no dysuria. Musculoskeletal: no pain, no weakness. Skin: no changing moles, no rash, no skin lumps. Neurologic: no seizures, no epilepsy, no headache. Psychiatric: no emotional or psychiatric problem. Heme/Lymph: no bleeding problems, no anemia, no blood clots, no transfusions. Allergy/Immunologic: no swollen lymph nodes/glands, no IV drug abuse. Other: Additional ROS info: Except as noted in the above Review of Systems and in the History of Present Illness, all other systems have been reviewed and are negative or noncontributory. Physical Exam Vitals & Measurements HR: 84(Peripheral) RR: 16 BP: 126/82 HT: 62 in HT: 158 cm WT: 75.9 kg WT: 166.98 lb BMI: 30.4 HEENT: normal conjunctiva, sclera clear, no scleral icterus, EOM intact, PERRLA, oral mucosa moist without lesions. Neck: trachea midline, no mass, symmetric, no thyromegaly or nodules, no adenopathy Respiratory: lungs CTA, respirations non labored. Cardiovascular: regular rate and rhythm, no murmur, no pedal edema or varicosities. Gastrointestinal: obese, soft, non distended, no tenderness, no masses, no palpable hernias, diastasis recti no, no hepatosplenomegaly; normal bs Lymphatic: no cervical adenopathy, Musculoskeletal: normal gait, digits and nails without infection, nodes, cyanosis, clubbing. Skin: no rashes, no lesions, no ulcers, no subcutaneous nodules, induration. Psychiatric/Neuro: oriented to time, place, person, judgement normal, affect appropriate for age, insight intact, no focal deficits. Tests: labs reviewed,, review of old records completed, Discussed surgical options, risks, and possible complications with patient. Assessment/Plan 1. Positive FIT (fecal immunochemical test) (R19.5: Other fecal abnormalities) plan colonoscopy under anesthesia for further evaluation, informed consent obtained. 2. Tobacco use (Z72.0: Tobacco use) We strongly recommend to quit tobacco use. Cigarette smoking harms nearly every organ of the body, causes many diseases, and reduces the health of smokers in general. Quitting smoking lowers your risk for smoking-related diseases and can add years to your life. We encourage you to visit www.smokefree.gov access to helpful resources including free telephone support. If you decide on prescription treatment to help you quit, your family doctor would be happy to provide these. Follow-up No qualifying data available Problem List/Past Medical History Ongoing Arthritis BMI 30.0-30.9,adult Depression Diabetes Diabetic neuropathy Diverticular disease of colon Dysarthria Dysphagia Dyspnea Essential hypertension Excessive sweating Flank pain GERD (gastroesophageal reflux disease) Gross hematuria Hemiplegia of nondominant side due to acute cerebrovascular accident (CVA) Hiatal hernia Hyperlipidemia Kidney stone Leg edema Lumbar disc disease Migraines Myalgia Positive FIT (fecal immunochemical test) Smoker Spondylosis Tobacco use Urgency of urination Vertigo Vitamin D deficiency Historical No qualifying data Procedure/Surgical History Arthroscopy of knee (10/23/2019), Chondroplasty (10/23/2019), Meniscectomy (10/23/2019), Appendectomy, Carpal tunnel release, section, section, Colonoscopy, Dilation and esophageal intubation, Extraction of wisdom tooth, Lumbar discectomy, ALANNA BSO - Total abdominal hysterectomy and bilateral salpingo-oophorectomy, Tonsillectomy. Medications aspirin 81 mg Oral EC Tab, 81 mg= 1 tab(s), Oral, Daily Carafate 1 gram Tab, 1 gm= (more content not included)... [facility] Comment on above: Result Comment: Elec tronically Signed By: LYN SOLIZ, Kody Abebe\.shirley\Date and Time Signed: 02/28/22 16:40 EDT Evaluation + Plan note Note Date & Type Note Facility Evaluation + Plan note No data available for this section [facility] Discharge instructions Note Date & Type Note Facility Hospital Discharge instructions No data available for this section General [facility] [place] Progress note Note Date & Type Note Facility Progress note No data available for this section General [facility] [place] Summary Purpose Family History No Family History Records FoundNo Family History Records Found Advance Directives No Advanced Directives Records FoundNo Advanced Directives Records Found Additional Source Comments Patient Care team informatio n (unrecognized section and content) Personnel Name: Wiley Zamarripa MD Address: Address: [facility] [place] [address]- INFORMATION SOURCE (unrecogn ized section and content) DATE CREATED AUTHOR 04/30/2022 Ahsan Munoz [facility] DATE CREATED AUTHOR AUTHOR'S CHANCE ATION 08/23/2022 [facility] FOR RECORDS PERTAINING TO PATIENTS WHO ARE OR HAVE BEEN ENROLLED IN A CHEMICAL DEPENDENCY/SUBSTANCEABUSE PROGRAM, SOME INFORMATION MAY BE OMITTED. This clinical summary was aggregated from multiple sources. Caution should be exercised in using it in the provision of clinical care. This summary normalizes information from multiple sources, and as a consequence, information in this document may materially change the coding, format and clinical context of patient data. In addition, data may be omitted in some cases. CLINICAL DECISIONS SHOULD BE BASED ON THE PRIMARY CLINICAL RECORDS. [facility] [employer] [facility]. provides no warranty or guarantee of the accuracy or completeness of information in this document.
--- NOTE | 2023-06-25 13:26 | US_ITS ---
Patient Name: LINDSEY LESTER MR#: [id number] : 1960 Exam Date: 06/25/2023 Ordering Doctor: DR Quinn Zamarripa . RADIOLOGY REPORT PROCEDURE: MM TOMOSYNTHESIS DIAGNOSTIC BI, 06/25/2023, 13:10 US BREAST RT LIMITED, 06/25/2023, 12:28 COMPARISON: MG MAMM SCREEN 3D JUANITA CAD, 06/16/2021. MG MAMM SCREEN JUANITA W CAD, 05/02/2018. MG MAMM SCREEN JUANITA W CAD, 02/05/2017. MG MAMM JUANITA SCRN W CAD DIG, 03/22/2015. INDICATIONS: Breast Lump N63.0 Calculator Name NCI Breast Cancer Risk Assessment Tool 5 Year Breast Cancer Risk 2.90% Lifetime Breast Cancer Risk 14.40% Personal Breast Cancer No Personal Ovarian Cancer No Treatments None Family Cancers Mother with breast cancer at age 60; Mother with pancreatic cancer at age 60; Father with prostate cancer at age 69; Aunt-maternal with breast cancer at age 60; Aunt-maternal with neck cancer at age 50; Aunt-paternal with unknown cancer at age 80. LOCATION: [facility] BREAST COMPOSITION: Scattered areas fibroglandular density. FINDINGS: DIAGNOSTIC CATEGORY 2--BENIGN FINDING: RIGHT BREAST: No significant suspicious finding on mammography; no significant change has occurred. Ultrasound evaluation within the axillary region at site of palpable lump demonstrates normal appearing fibroglandular tissue; no suspicious findings. LEFT BREAST: No significant suspicious finding. No significant change has occurred. RECOMMENDATIONS: ROUTINE MAMMOGRAM AND CLINICAL EVALUATION IN 12 MONTHS. PLEASE NOTE: A NORMAL MAMMOGRAM DOES NOT EXCLUDE THE POSSIBILITY OF BREAST CANCER. A CLINICALLY SUSPICIOUS PALPABLE LUMP SHOULD BE BIOPSIED. Dictated by: Mario Reese M.D. on 06/25/2023 at 13:41 Approved by: Mario Reese M.D. on 06/25/2023 at 13:46
--- NOTE | 2023-06-25 13:40 | CT_ITS ---
The [address] [address] Patient Name: LINDSEY LESTER MRN: [id number] date: 1960 Sex: F Assigned Patient Location: MAMM Current Patient Location: [facility] Accession/Order Number: [id number] Exam Date: 06/25/2023 13:36 Report Date: 06/25/2023 15:16 At the request of: WILEY COLUNGA Procedure: CT lung screening low-dose EXAMINATION: CT lung screening low-dose HISTORY: Cigarette Smoking F17.210 COMPARISON: CT LUNG CANCER SCREENING 02/14/2022 TECHNIQUE: Axial, Coronal, and Sagittal images were created without the administration of IV contrast material. Dose reduction techniques were achieved by using automated exposure control and/or adjustment of mA and/or kV according to patient size and/or use of iterative reconstruction technique. FINDINGS: LUNGS: No visible pulmonary disease. PLEURA: No mass, effusion, or pneumothorax. VASCULATURE: No abnormality. ROGER: No mass or pathologic adenopathy. MEDIASTINUM: No mass or pathologic adenopathy. CARDIAC: No enlargement, pericardial thickening, or pericardial effusion. AORTA: No aneurysm or dissection. CHEST WALL: No mass or axillary adenopathy BONES: Stable kyphosis and slight anterior wedging of T9 and T10 vertebral bodies. LIMITED ABDOMEN: Large hiatal hernia. Stable 2 cm left adrenal mass. The Limited images of the upper abdomen. OTHER: Negative. CT/CT lung screening low-dose IMPRESSION: 1. Lung-RADS Category 1 Negative. No nodules and definitely benign nodules. Continue annual screening with LDCT in 12 months. The Electronically authenticated by: MICHELLE ZHANG Date: 06/25/2023 15:16
== END 2023-06-25 13:01 | disposition home or self-care (01) ==
LOC: MAMMO 13:00
PROVIDERS: PCP Family Medicine; Visit Provider Family Medicine
DX: N63.31 Unspecified lump in axillary tail of the right breast (principal); F17.210 Nicotine dependence, cigarettes, uncomplicated
CPT/HCPCS: 71271; 76642; 77066; G0279

== ENCOUNTER 2023-08-09 12:35 | Outpatient (OUT) | payer MEDICARE, SELFPAY ==
--- NOTE | 2023-08-09 12:40 | MR_ITS ---
The [address] [address] Patient Name: LINDSEY LESTER MRN: [id number] date: 1960 Sex: F Assigned Patient Location: MRI Current Patient Location: MRI Accession/Order Number: [id number] Exam Date: 08/09/2023 13:00 Report Date: 08/09/2023 13:55 At the request of: ENRICO ANNE Procedure: MR head/brain wo con MR head/brain wo con HISTORY: transient ischemic attack G45.9 COMPARISON: None. TECHNIQUE: Multi-planar, multi-sequence brain MRI was performed without IV contrast. FINDINGS: Brain volume: Normal. Sagittal midline structures: Normal. Ventricles: Normal. Acute ischemic changes: None. Hemorrhage: None. Masses/edema: None. Magana-white: Negative. White matter: A few punctate subcortical white matter hyperintensities. Vessels: Normal. Extra-axial: None. Calvarium/scalp: Negative. Skull base: Small left mastoid effusion. Visualized sinuses/orbits: Negative. Visualized upper neck: Negative. MR/MR head/brain wo con IMPRESSION: 1. No acute ischemia or intracranial hemorrhage. Electronically authenticated by: NIGEL PINZON Date: 08/09/2023 13:55
--- OUTSIDE RECORDS SUMMARY | 2023-08-09 12:41 | XMS_ITS | CCD ---
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 Name Role Phone Wiley Zamarripa Primary Care Physician [phone] MD Quinton ROB Attending Unavailable NILL, Kody Abebe Attending Unavailable Hoy PROVIDER, Wiley Referring Unavailabl e Hoy PROVIDER, Wiley Referring Unavailabl e NILL, Kody Abebe Attending Unavailable NILL, Kody R Attending Unavailable HOY ., DR JAMA Admitting [...] HOY ., DR JAMA Primary Care Unavailable HIGHLANDER, PETER D Admitting Unavailable ZIEBER, DR MICHELLE Abebe Consulting Unavailable HIGHLANDER, MELVI Nelson Attending Unavailable HIGHLANDER, PETER D Consulting Unavailable HOY ., DR JAMA Primary Care Unavailable HIGHLANDER, PETER D Admitting Unavailable HIGHLANDER, MELVI Nelson Attending Unavailable HIGHLANDER PETER Omar Consulting Unavailable HOY ., DR JAMA Admitting Unavailable HOY ., DR JAMA Attending Unavailable HOY ., DR JAMA Consulting Unavailable HOY ., DR JAMA Primary Care Unavailable NILL ., DR GATES Admitting Unavailable HOY ., DR JAMA Primary Care Unavailable NILL ., DR GATSE Attending Unavailable NILL ., DR GATES Consulting [...] Drug Allergy Vomiting (disorder) [facility] (2 sources) Azithromycin; Translations: [azithromycin] Drug Allergy Vomiting (disorder) [facility] (2 sources) Meperidine; Translations: [meperidine] Drug Allergy Projectile vomiting (disorder) [facility] (2 sources) Azithromycin Drug Allergy 3 [facility] (2 sources) Meperidine Drug Allergy 3 [facility] (1 source) oxyCODONE Drug Allergy [facility] Medications Current Medications Medication Drug Class(es) [...] 0 Start Date: 12/26/20 Status: Ordered Evening Tacoma Oil oral capsule (1 source) Start: 12-22-2020 Evening Tacoma Oil oral capsule Refill(s) 0 Start Date: [...] Start Date: 12/22/20 Status: Ordered Vitamin D3 1999 intl units oral tablet (1 source) Start: [...] 02-13-2022 12-26-2020 Episodic Other aftercare (1 source) prison (current) use of aspirin; Translations: [[facility] CURRENT USE OF ASPIRIN] Onset: 04-29-2022 Episodic Other aftercare (1 source) Other long term care social worker (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 therapy; Translations: [OTH [facility] CURRENT DRUG THERAPY] Onset: 04-29-2022 Episodic Other [...] Range Facility Outside Colonoscopyon 2021 Outside Colonoscopy [id number] .00CD:127 Normal [facility] Lab Reportson 04-23-2022 Lab Reports [id number] .00CD:127 Normal [facility]on SARS-CoV-2 (COVID-19) RNA JASWANT+probe Ql (Unsp spec) Not detected Normal NOT DETECTED [facility] Comment on above: Result Comment: This test is not yet approved or cleared by the [place] FDA. When there are no FDA-approved or cleared tests available, and other criteria are met, FDA can make tests available under an emergency access mechanism called an Emergency Use Authorization (EUA). The EUA for this test is supported by the [employer] Stitcher of Health and Human Service's (HHS's) declaration [...] consistent with SARS-CoV-2. Performed By: #### C [facility] ####[facility] [address] [place], [place] [address]Qf. Arias Michel Pre-Certification Formon Pre-Certification Form [id number] 1.00CD:127 Normal [facility] Consent for Procedure/Surger yon 03-01-2022 Consent for Procedure/Surgery [id number] .00CD:127 [facility] Ambulatory Visit Summaryon 1 Ambulatory Visit Summary LUIS LESTER :1960 Visit Date:02/28/2022 Ambulatory Visit Instructions Your Care Team Attending Physician - LYN SOLIZ, Kody Abebe Primary Care Physician - Marilou SOLIZ, Wiley Referring Physician - Wiley Zamarripa MD This Is Your Medications List Contact prescribing physician if questions or concerns aspirin (aspirin 81 mg Oral EC Tab) carvedilol (Coreg 25 mg Tab) cholecalciferol (Vitamin D3 2000 intl units oral tablet) diclofenac (Diclofenac 75mg Tab-DR) duloxetine (duloxetine 60 mg Cap-DR) evening primrose (Evening Tacoma Oil oral capsule) ferrous sulfate (ferrous sulfate [...] questions or concerns Unchanged evening primrose (Evening Tacoma Oil oral capsule) Contact prescribing physician if [...] of urination Vertigo Vitamin D deficiency Normal [facility] CT LUNG CANCER SCREENINGon 0 02-14-2022 CT [...] by: MICHELLE ZHANG Date: 2022-02-14 14:42 Normal [facility] Physician Referralon 022 Physician Referral [id number] .[id number]:127 Normal [facility] CULTURE URINEon 02-10-2022 CULTURE URINE Isolate 1 [...] F Trimethoprim/Sulfamet hoxazole <=20 S F Normal [facility] Comment on above: Performed By: #### U RCX #### [facility] [address] [address] [address] Arias Michel INSULINon 02-09-2022 Insulin 16.8 uIU/mL Normal 2.6-24.9 [facility] Comment on above: Performed By: #### I NSULIN #### [facility] [address] [address] [address] Arias Michel T4, T3U, FTI LABCORPon 02-09 Free Thyroxine Index 1.7 Normal 1.2-4.9 [facility] Comment on above: Performed By: #### T HYLC #### [facility] [address] [place] [address] Dr. Arias Michel T3 Uptake 25 % Normal 24-39 [facility] Comment on above: Performed By: #### T HYLC #### [facility] [address] [place] [address] Dr. Arias Michel T4 [Mass/Vol] 6.6 ug/dL Normal 4.5-12.0 [facility] Comment on above: Performed By: #### T HYLC #### [facility] [address] [place] [address] Dr. Arias Michel CBC AUTO DIFFon 02-08-2022 BASO # 0.1 103/ul Normal 0.0-0.1 [facility] Comment on above: Performed By: #### C BC ####[facility] [address] [place], [place] [address]Dr. Arias Michel Basophils/100 WBC (Bld) 1.7 % Normal 0.2-2.0 [facility] Comment on above: Performed By: #### C BC ####[facility] [address] [place], [place] [address]Dr. Arias Michel EO # 0.7 103/ul Normal 0.0-0.7 [facility] Comment on above: Performed By: #### C BC ####[facility] [address] [address]Dr. Arias Michel Eosinophils/100 WBC (Bld) 11.4 % Critically high 0.9-7.0 [facility] Comment on above: Performed By: #### C BC ####[facility] Rx[address] [place], [place] [address]Dr. Arias Michel Erythrocyte distribution width (RBC) [Ratio] 13.1 % Normal 11.0-15.0 [facility] Comment on above: Performed By: #### C BC ####[facility] [address] [place], [place] [address]Dr. Arias Michel Hematocrit (Bld) [Volume fraction] 45.0 % Normal 36.0-48.0 [facility] Comment on above: Performed By: #### C BC ####[facility] [address] [place], [place] [address]Dr. Arias Michel Hemoglobin (Bld) [Mass/Vol] 14.8 g/dL Normal 12.0-16.0 [facility] Comment on above: Performed By: #### C BC ####[facility] [address] [place], [place] [address]Dr. Arias Michel IG # 0.01 10e3/ul Normal 0.00-0.03 [facility] Comment on above: Performed By: #### C BC ####[facility] [address] [place], [place] [address]Dr. Arias Michel IG % 0.2 % Normal 0.0-0.5 [facility] Comment on above: Performed By: #### C BC ####[facility] [address]fs[address] [place], [place] [address]Dr. Arias Michel LYMPH # 1.6 103/ul Normal 1.2-3.8 [facility] Comment on above: Performed By: #### C BC ####[facility] X[address] [place], [place] [address]Dr. Arias Michel Lymphocytes/100 WBC (Bld) 26.9 % Normal 20.5-60.0 [facility] Comment on above: Performed By: #### C BC ####[facility] [address] [place], [place] [address]Dr. Arias Michel MANUAL DIFF REQ NO Normal [facility] Comment on above: Performed By: #### C BC ####[facility] [address] [address]Dr. Arias Michel MCH (RBC) [Entitic mass] 29.7 pg Normal 26.7-34.0 [facility] Comment on above: Performed By: #### C BC ####[facility] [address] [place], [place] [address]Dr. Arias Michel MCHC (RBC) [Mass/Vol] 32.9 g/dL Normal 29.9-35.2 [facility] Comment on above: Performed By: #### C BC ####[facility] [address] [place], [place] [address]Dr. Arias Michel MCV (RBC) [Entitic vol] 90.2 fL Normal 81.0-99.0 [facility] Comment on above: Performed By: #### C BC ####[facility] [address] [place], [place] [address]Dr. Arias Michel MONO # 0.5 103/ul Normal 0.3-0.8 [facility] Comment on above: Performed By: #### C BC ####[facility] F[address] [place], [place] [address]Dr. Arias Michel Monocytes/100 WBC (Bld) 7.8 % Normal 1.7-12.0 [facility] Comment on above: Performed By: #### C BC ####[facility] [address] [place], [place] [address]Dr. Arias Michel NEUT # 3.0 103/ul Normal 1.4-6.5 [facility] Comment on above: Performed By: #### C BC ####[facility] [address] [place], [place] [address]Dr. Arias Michel Neutrophils/100 WBC (Bld) 52.0 % Normal 43.0-75.0 [facility] Comment on above: Performed By: #### C BC ####[facility] [address] [place], [place] [address]Dr. Arias Michel Platelet mean volume (Bld) [Entitic vol] 9.7 fL Normal 9.5-13.5 [facility] Comment on above: Performed By: #### C BC ####[facility] [address] [address]DrToan Michel PLT 228 103/ul Normal 150-450 [facility] Comment on above: Performed By: #### C BC ####[facility] [address] [address]Dr. Arias Michel RBC 4.99 106/ul Normal 4.20-5.40 [facility] Comment on above: Performed By: #### C BC ####[facility] [address] [address]DrToan Michel WBC 5.8 103/ul Normal 4.0-11.0 [facility] Comment on above: Performed By: #### C BC ####[facility] [address] [address]Dr. Arias Michel GLYCOHEMOGLOBIN A1Con 2021 ADA RECOMMENDATION SEE BELOW Normal [facility] Comment on above: Result Comment: ADA RECOMMENDED LIMIT 4.0 - 6.0 ADA THERAPEUTIC TARGET < 7.0 ACTION SUGGESTED > 7.0 Performed By: #### A 1C #### [facility] [address] [place] [address] Dr. Arias Michel Glucose [Mass/Vol] 105 mg/dL Normal [facility] Comment on above: Performed By: #### A 1C #### [facility] [address] [address] [address] Arias Michel HbA1c (Bld) [Mass fraction] 5.3 % Normal 4.5-6.2 [facility] Comment on above: Performed By: #### A 1C #### [facility] [address] [place] [address] Dr. Arias Michel IRONon 02-08-2022 Iron [Mass/Vol] 68.0 ug/dL Normal 50.0-170.0 [facility] Comment on above: Performed By: #### CALLY GARCIA #### [facility] [address] [address] [address] Arias Michel LIPID PROFILEon 02-08-2022 CHOL-HDL RATIO NORM SEE BELOW Normal [facility] Comment on above: Result Comment: 3.3 - 4.4 LOW RISK 4.4 - 7.1 AVERAGE RISK 7.1 - 11.0 MODERATE RISK >11.0 HIGH RISK Performed By: #### L IPID, TSH, CMP #### [facility] [address] [address] [address] Arias Michel Cholesterol [Mass/Vol] 269 mg/dL Critically high <=200 [facility] Comment on above: Performed By: #### L IPID, TSH, CMP #### [facility] [address] [address] [address] Arias Michel Cholesterol in HDL [Mass/Vol] 36 mg/dL Critically low 40-60 [facility] Comment on above: Performed By: #### L IPID, TSH, CMP #### [facility] [address] [address] [address] Arias Michel Cholesterol in LDL [Mass/Vol] 185.4 mg/dL Normal [facility] Comment on above: Performed By: #### L IPID, TSH, CMP #### [facility] [address] [address] [address] Arias Michel Cholesterol.total/Cho lesterol in HDL [Mass ratio] 7.5 {ratio} Normal [facility] Comment on above: Performed By: #### L IPID, TSH, CMP #### [facility] [address] [address] [address] Arias Michel HDL NORMAL > or = 60 mg/dl - LO W CARDIOVASCULAR RISK <40 mg/dl - HIGH CARDIOVASCULAR RISK Normal [facility] Comment on above: Performed By: #### L IPID, TSH, CMP #### [facility] [address] [place] [address] Dr. Arias Michel LDL CALC NORMAL SEE BELOW Normal [facility] Comment on above: Result Comment: <100 mg/dl OPTIMAL 100 - 129 mg/dl NEAR OR ABOVE OPTIMAL 130 - 159 mg/dl BORDERLINE HIGH 160 - 189 mg/dl HIGH >190 mg/dl VERY HIGH Performed By: #### L IPID, TSH, CMP #### [facility] [address] [address] [address] Arias Michel Triglyceride [Mass/Vol] 238 mg/dL Critically high <=150 [facility] Comment on above: Performed By: #### L IPID, TSH, CMP #### [facility] [address] [address] [address] Arias Michel VLDL CALC 47.6 mg/dL Normal [facility] Comment on above: Performed By: #### L IPID, TSH, CMP #### [facility] [address] [address] [address] Arias Michel PROF 14(COMP METB)on 022 Albumin [Mass/Vol] 3.8 g/dL Normal 3.4-5.0 [facility] Comment on above: Performed By: #### L IPID, TSH, CMP ####[facility] [address] [address]DrToan Michel Albumin/Globulin [Mass ratio] 1.3 {ratio} Normal [facility] Comment on above: Performed By: #### L IPID, TSH, CMP ####[facility] [address] [address]DrToan Michel ALP [Catalytic activity/Vol] 73 U/L Normal 46-116 [facility] Comment on above: Performed By: #### L IPID, TSH, CMP ####[facility] [address] [address]DrToan Michel ALT [Catalytic activity/Vol] 27 U/L Normal 14-59 [facility] Comment on above: Performed By: #### L IPID, TSH, CMP ####[facility] [address] [address]DrToan Michel Anion gap [Moles/Vol] 9.7 mmol/L Normal [facility] Comment on above: Performed By: #### L IPID, TSH, CMP ####[facility] [address] [address]DrToan Michel AST [Catalytic activity/Vol] 13 U/L Critically low 15-37 [facility] Comment on above: Performed By: #### L IPID, TSH, CMP ####[facility] [address] [address]Dr. Arias Michel Bilirubin [Mass/Vol] 0.5 mg/dL Normal 0.2-1.0 [facility] Comment on above: Performed By: #### L IPID, TSH, CMP ####[facility] [address] [place], [place] [address]Dr. Arias Michel Calcium [Mass/Vol] 8.9 mg/dL Normal 8.5-10.1 [facility] Comment on above: Performed By: #### L IPID, TSH, CMP ####[facility] [address] [place], [place] [address]Dr. Arias Michel Chloride [Moles/Vol] 105 mmol/L Normal 98-107 [facility] Comment on above: Performed By: #### L IPID, TSH, CMP ####[facility] [address] [place], [place] [address]Dr. Arias Michel CO2 [Moles/Vol] 29.2 mmol/L Normal 21.0-32.0 [facility] Comment on above: Performed By: #### L IPID, TSH, CMP ####[facility] [address] [place], [place] [address]Dr. Arias Michel Creatinine [Mass/Vol] 0.77 mg/dL Normal 0.55-1.02 [facility] Comment on above: Performed By: #### L IPID, TSH, CMP ####[facility] [address] [address]Dr. Arias Michel EGFR-AF FILIPINO >60 Normal >=60 [facility] Comment on above: Performed By: #### L IPID, TSH, CMP ####[facility] [address] [address]Dr. Arias Michel EGFR-NON AF FILIPINO >60 Normal >=60 [facility] Comment on above: Performed By: #### L IPID, TSH, CMP ####[facility] [address] [address]Dr. Arias Michel Globulin (S) [Mass/Vol] 2.9 g/dL Normal [facility] Comment on above: Performed By: #### L IPID, TSH, CMP ####[facility] [address] [address]Dr. Arias Michel Glucose [Mass/Vol] 95 mg/dL Normal 74-106 [facility] Comment on above: Performed By: #### L IPID, TSH, CMP ####[facility] [address] [place], [place] [address]Dr. Arias Michel Potassium [Moles/Vol] 3.9 mmol/L Normal 3.5-5.1 [facility] Comment on above: Performed By: #### L IPID, TSH, CMP ####[facility] [address] [place], [place] [address]Dr. Arias Michel Protein [Mass/Vol] 6.7 g/dL Normal 6.4-8.2 [facility] Comment on above: Performed By: #### L IPID, TSH, CMP ####[facility] [address] [place], [place] [address]Dr. Arias Michel Sodium [Moles/Vol] 140 mmol/L Normal 136-145 [facility] Comment on above: Performed By: #### L IPID, TSH, CMP ####[facility] [address] [place], [place] [address]Dr. Arias Michel Urea nitrogen [Mass/Vol] 13.0 mg/dL Normal 7.0-18.0 [facility] Comment on above: Performed By: #### L IPID, TSH, CMP ####[facility] [address] [place], [place] [address]Dr. Arias Michel Urea nitrogen/Creatinine [Mass ratio] 16.9 mg/mg Normal [facility] Comment on above: Performed By: #### L IPID, TSH, CMP ####[facility] [address] [place], [place] [address]Dr. Arias Michel TSHon 02-08-2022 TSH 1.080 uIU/mL Normal 0.358-3.740 [facility] Comment on above: Performed By: #### L IPID, TSH, CMP ####[facility] [address] [address]Dr. Arias Michel UA RANDOM W/MICROSCOPICon BACTERIA TRACE Abnormal NONE SEEN [facility] Comment on above: Performed By: #### U AMIC #### [facility] [address] [address] [address] Arias Michel Bilirubin Ql (U) Negative Normal NEGATIVE [facility] Comment on above: Performed By: #### U AMIC #### [facility] [address] [place] [address] Dr. Arias Michel CA OX CRYSTALS MODERATE Normal [facility] Comment on above: Performed By: #### U AMIC #### [facility] [address] [place] [address] Dr. Arias Michel CAST NONE SEEN Normal NONE SEEN [facility] Comment on above: Performed By: #### U AMIC #### [facility] [address] [address] [address] Arias Michel Clarity (U) CLEAR Normal CLEAR [facility] Comment on above: Performed By: #### U AMIC #### [facility] [address] [place] [address] Dr. Arias Michel Color (U) YELLOW Normal YELLOW [facility] Comment on above: Performed By: #### U AMIC #### [facility] [address] [place] [address] Dr. Arias Michel Crystals LM Nom (Urine sed) SEEN Abnormal NONE SEEN [facility] Comment on above: Performed By: #### U AMIC #### [facility] [address] [place] [address] Dr. Arias Michel Epithelial cells LM Ql (Urine sed) FEW Abnormal NONE SEEN /RARE [facility] Comment on above: Performed By: #### U AMIC #### [facility] [address] [place] [address] Dr. Arias Michel Glucose Ql (U) Negative Normal NEGATIVE [facility] Comment on above: Performed By: #### U AMIC #### [facility] [address] [address] [address] Arias Michel Hemoglobin Ql (U) Negative Normal NEGATIVE [facility] Comment on above: Performed By: #### U AMIC #### [facility] [address] [address] [address] Arias Michel Ketones Ql (U) Negative Normal NEGATIVE [facility] Comment on above: Performed By: #### U AMIC #### [facility] [address] [address] [address] Arias Michel LEUKOCYTES TRACE Abnormal NEGATIVE [facility] Comment on above: Performed By: #### U AMIC #### [facility] [address] [address] [address] Arias Michel MUCOUS SMALL Abnormal NONE SEEN [facility] Comment on above: Performed By: #### U AMIC #### [facility] [address] [address] [address] Arias Michel Nitrite Ql (U) Negative Normal NEGATIVE [facility] Comment on above: Performed By: #### U AMIC #### [facility] [address] [address] [address] Arias Michel pH (U) 6.0 [pH] Normal 5-9 [facility] Comment on above: Performed By: #### U AMIC #### [facility] [address] [address] [address] Arias Michel RBC 2-5 Abnormal 0-2 [facility] Comment on above: Performed By: #### U AMIC #### [facility] [address] [address] [address] Arias Michel SPEC GRAVITY >=1.030 Abnormal 1.005-<=1.025 [facility] Comment on above: Performed By: #### U AMIC #### [facility] [address] [place] [address] Dr. Arias Michel UA PROTEIN Negative Normal NEGATIVE/ TRACE [facility] Comment on above: Performed By: #### U AMIC #### [facility] [address] [address] [address] Arias Michel Urobilinogen Qn (U) 0.2 {Gladis'U}/dL Normal 0.2 - 1. 0 [facility] Comment on above: Performed By: #### U AMIC #### [facility] [address] [address] [address] Arias Michel WBC 5-10 Abnormal NONE SEEN [facility] Comment on above: Performed By: #### U AMIC #### [facility] [address] [address] [address] Arias Michel VITAMIN D 25 OHon 02-08-2022 VIT D 25-OH 45.1 ng/mL Normal [facility] Comment on above: Performed By: #### I BYRON, VITAD #### [facility] [address] [place] [address] Dr. Arias Michel VIT D RANGES SEE BELOW Normal [facility] [facility] Comment on above: Result Comment: <20 ng/mL Vit D deficient 20 - <30 ng/mL Vit D insufficient 30 - 100 ng/mL Vit D sufficient >100 ng/mL Potential Toxicity Performed By: #### I BYRON, VITAD #### [facility] [address] [place] [address] Dr. Arias Michel Covid-19 PCR (CVDTB)on 01-18 SARS-CoV-2 (COVID-19) RNA JASWANT+probe Ql (Unsp spec) Not detected Normal NOT DETECTED [facility] Comment on above: Result Comment: This test is not yet approved or cleared by the [place] FDA. When there are no FDA-approved or cleared tests available, and other criteria are met, FDA can make tests available under an emergency access mechanism called an Emergency Use Authorization (EUA). The EUA for this test is supported by the [employer] of Health and Human Service's (HHS's) declaration [...] consistent with SARS-CoV-2. Performed By: #### [facility] #### [facility] [address] [address] [address] Arias Michel Provider Letteron 05-05-2021 Provider Letter May 05, 2021 May 05, 2021 LUIS LESTER [address] [place] [id number] LUIS LESTER 1960 Dear Luis Lester , [...] to this matter. Sincerely, [facility] [address], [place] [address] [facility] Vital Signs Date Time Vital Sign Value Performing Clinician Maame devi 02-28-2022 15:31-0400 Blood Pressure Location [employer] [facility] 02-28-2022 15:31-0400 Diastolic blood pressure 82 mm[Hg] Kody SOTOL [facility] 02-28-2022 15:31-0400 Heart rate 84 /min Kody SOTOL [facility] 02-28-2022 15:31-0400 Respiratory rate 16 /min Kody SOTOL [facility] 02-28-2022 15:31-0400 Systolic blood pressure 126 mm[Hg] Kody SOTOHeyLets [facility] Encounters Encounter Date Encounter Type Care Provider Facility Start: 05-28-2022 End: 05-29-[address] WILEY ZAMARRIPA . Facility:[facility] Start: 05-09-2022 End: 05-10-[address] WILEY ZAMARRIPA . Facility:[facility] Start: 04-28-2022 Encounter for preprocedural laboratory examination DR KODY HARTMAN . [facility] Start: 04-25-2022 End: 04-26-2022 ambulatory Kody HARTMAN Facility:[id number] Start: 04-21-2022 End: 04-22-[address] KODY HARTMAN . Facility:[facility] Start: 04-21-2022 End: 04-22-2022 Encounter for preprocedural laboratory examination DR KODY HARTMAN . Facility:[facility] Start: 02-28-2022 End: 03-01-2022 ambulatory Wiley Zamarripa PROVIDER Facility:[facility] Start: 02-28-2022 End: 02-28-2022 Patient encounter [facility] Start: 02-14-2022 End: 02-15-[address] WILEY ZAMARRIPA . Facility:[facility] Start: 02-09-2022 ambulatory Kody HARTMAN Facility :[facility] Start: 02-08-2022 End: 02-09-[address] WILEY ZAMARRIPA . Facility:[facility] Start: 02-01-2022 End: 02-01-[address] WILEY ZAMARRIPA . Facility: Start: 10-19-[address] WILEY ZAMARRIPA . Facili ty:[facility] Start: 05-15-2021 ambulatory MD Quinton ROB Fac ility:[facility] Procedures Date Procedure Procedure Detail Performing Clinician [...] NILL Extraction of wisdom tooth M ichferny NILL Tonsillectomy Kody NILL Total abdominal hysterectomy with bilateral salpingo-oophorectomy Kody NILL Immunizations Immunization Date Immunization Notes Care Provider Fa devan 08-31-2020 SARS-CoV-2 (COVID-19 ) Ad26 vaccine, recombinant Kody HARTMAN [facility] Payers Date Payer Category Payer Unknown [id number] 2.16.8 [id number] 1960 Unknown [id number] 2.16.8 [id number] 1960 Unknown [id number] 2.16.8 [id number] 1960 Unknown [id number] 2.16.84 [id number] 1960 Unknown [id number] 2.16.84 [id number] 1960 Unknown [id number] 2.16.84 [id number] 1960 Unknown [id number] 2.16.84 [id number] 1962 Unknown [id number] 2.16.84 [id number] 1960 Unknown [id number] 2.16.84 [id number] 1962 Unknown [id number] 2.16.84 0.1.548090.3.579.2.593 1960 Unknown [id number] 2.16.84 [id number] 1960 Unknown [id number] 2.16.84 [id number] 1957 Medicaid [id number] 1957 Self-pay [id number] 1957 Unknown [id number] Social History Date Type Detail Facility Start: 02-28-2022 Tobacco smoking status Heavy t obacco smoker (finding) [facility] [place] Tobacco smoking status Never [facility] [place] Sex Assigned At Female [facility] [place] Functional Status Date Assessment Result Facility 02-28-2022 Functional Status N/A [facility] Clinical Note 05-11-2022 Note Date & Type [...] authenticated by: MICHELLE ZHANG Date: 2022-05-10 22:20 [facility] Clinical Note 04-25-2022 Note Date & [...] good condition. CC: Wiley Zamarripa M.D. [facility] Clinical Note 02-28-2022 Note Date & Type Note Facility 02-28-2022 Note Chief Complaint consultation for positive FIT test HPI Staff 61 year old female presents on [...] Tab, 1 gm= (more content not included)... [facility] Comment on above: Result Comment: Elec tronically Signed By: Kody HARTMAN MD.shirley\Date and Time Signed: 02/28/22 16:40 EDT Evaluation + Plan note Note Date & Type Note Facility Evaluation + Plan note No data available for this section [facility] [place] [facility] Discharge instructions Note Date & Type Note Facility Hospital Discharge instructions No data available for this section [facility] [place] Progress note Note Date & Type Note Facility Progress note No data available for this section [facility] [place] Summary Purpose Family History No Family History Records FoundNo Family History Records Found Advance Directives No Advanced Directives Records FoundNo Advanced Directives Records Found Additional Source Comments Patient Care team informatio n (unrecognized section and content) Personnel Name: Wiley Zamarripa MD Address: Address: [address] [place], [place] [address] [address]- INFORMATION SOURCE (unrecogn ized section and content) DATE CREATED AUTHOR 04/30/2022 Ahsan [facility] DATE CREATED AUTHOR ZAYNAB BOSTON 08/23/2022 [facility] FOR RECORDS PERTAINING TO PATIENTS WHO ARE [...] BE BASED ON THE PRIMARY CLINICAL RECORDS. [employer] provides no warranty or guarantee of the accuracy or completeness of information in this document.
== END 2023-08-09 12:36 | disposition home or self-care (01) ==
LOC: MRI 12:36
PROVIDERS: PCP Family Medicine; Visit Provider Nurse Practitioner Adult Health
DX: G45.9 Transient cerebral ischemic attack, unspecified (principal)
CPT/HCPCS: 70551

== ENCOUNTER 2024-06-30 10:11 | Outpatient (OUT) | payer MEDICARE, MEDICAID, SELFPAY ==
[2024-06-30 10:32] LABS: Basophils Absolute Auto 0.1 10^3/uL (0.0-0.1); Basophils Percent Auto 1.1 % (0.2-2.0); Eosinophils Absolute Auto 0.7 10^3/uL (0.0-0.7); Eosinophils Percent Auto 11.5 % (0.9-7.0); Hematocrit 46.7 % (36.0-48.0); Hemoglobin 15.6 g/dL (12.0-16.0); Immature Granulocytes Abs Auto 0.01 10^3/uL (0.00-0.03); Immature Granulocytes Pct Auto 0.2 % (0.0-0.5); Lymphocytes Absolute Auto 1.3 10^3/uL (1.2-3.8); Lymphocytes Percent Auto 21.4 % (20.5-60.0); Mean Corpuscular HGB Conc 33.4 g/dL (29.9-35.2); Mean Corpuscular Hemoglobin 29.5 pg (26.7-34.0); Mean Corpuscular Volume 88.3 fL (81.0-99.0); Mean Platelet Volume 9.9 fL (9.5-13.5); Monocytes Absolute Auto 0.6 10^3/uL (0.3-0.8); Monocytes Percent Auto 9.6 % (1.7-12.0); Neutrophils Absolute Auto 3.5 10^3/uL (1.4-6.5); Neutrophils Percent Auto 56.2 % (43.0-75.0); Platelet Count 196 10^3/uL (150-450); Red Blood Count 5.29 10^6/uL (4.20-5.40); Red Cell Distribution Width 12.6 % (11.0-15.0); White Blood Count 6.2 10^3/uL (4.0-11.0)
--- OUTSIDE RECORDS SUMMARY | 2024-06-30 10:32 | XMS_ITS | CCD ---
Author Organization [facility] Care Team Providers Care Mri Ct Tech Name Role Phone Wiley Zamarripa Primary Care Physician MD Quinton ROB Attending Unavailable NILLKody Attending Unavailable Hoy PROVIDER, Wiley Referring Unavailabl e Hoy PROVIDER, Wiley Referring Unavailabl e NILLKody Attending Unavailable NILL, Kody Abebe Attending Unavailable [...] ZIEBER, DR MICHELLE Abebe Consulting Unavailable HIGHLANDER, PETER D Attending Unavailable HIGHLANDER, PETER D Consulting Unavailable HOY ., DR JAMA Primary Care Unavailable HIGHLANDER, PETER D Admitting Unavailable HIGHLANDERMELVI Attending Unavailable HIGHLANDER PETER D Consulting Unavailable HOY ., DR JAMA Admitting [...] GATES Consulting Unavailable JUAN BHATT Consulting Unavailable GEMBUS CARLOS Consulting Unavailable HOY ., DR JAMA Admitting Unavailable HOY ., DR JAMA Attending Unavailable HOY ., DR JAMA Primary Care Unavailable ENRICO ANNE Attending Unavailable Allergies Allergy Classification Reported Allergen(s) Allergy Type Date of Onset Reaction(s) Facility (2 sources) Acetaminophen / oxyCODONE; Translations: [acetaminophen-ox ycodone] Drug Allergy Vomiting (disorder) [facility] (2 sources) Azithromycin; Translations: [azithromycin] Drug Allergy Vomiting (disorder) [facility] (2 sources) Meperidine; Translations: [meperidine] Drug Allergy Projectile vomiting (disorder) [facility] (2 sources) Azithromycin Drug Allergy 3 [facility] (2 sources) Meperidine Drug Allergy 3 [facility] (1 source) oxyCODONE Drug Allergy [facility] Medications Current Medications Medication Drug [...] 0 Start Date: 12/26/20 Status: Ordered Evening Watkins Oil oral capsule (1 source) Start: 12-22-2020 Evening Watkins Oil oral capsule Refill(s) 0 Start Date: [...] capsule (1 source) Calcium Channel Sena Start: 08-05-2021 take 1 capsule by mouth once daily [...] 02-13-2022 12-26-2020 Episodic Other aftercare (1 source) nursing home (current) use of aspirin; Translations: [HALFWAY CURRENT USE OF ASPIRIN] Onset: 04-29-2022 Episodic Other aftercare (1 source) 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; Translations: [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 When there are no FDA-approved or cleared tests available, and other criteria are met, FDA can make tests available under an emergency access mechanism called an Emergency Use Authorization (EUA). The EUA for this test is supported by the Geometrician of Health and Human Service's (HHS's) declaration [...] consistent with SARS-CoV-2. Performed By: #### C [facility] ####[facility] [address] [place], [place] [address]Co. Arias Michel Pre-Certification Formon Pre-Certification Form [id number] 1.00CD:127 Normal [facility] Consent for Procedure/Surger yon 03-01-2022 Consent for Procedure/Surgery [id number] .00CD:127 [facility] Ambulatory Visit Summaryon 1 Ambulatory Visit Summary LUIS LESTER :1960 Visit Date:02/28/2022 Ambulatory Visit Instructions Your Care Team Attending Physician - Kody NICHOLSON MD Primary Care Physician - Wiley Zamarripa MD Referring Physician - Wiley Zamarripa MD This Is Your Medications List Contact prescribing physician if questions or concerns aspirin (aspirin 81 mg Oral EC Tab) carvedilol (Coreg 25 mg Tab) cholecalciferol (Vitamin D3 2000 intl units oral tablet) diclofenac (Diclofenac 75mg Tab-DR) duloxetine (duloxetine 60 mg Cap-DR) evening primrose (Evening Watkins Oil oral capsule) ferrous sulfate (ferrous sulfate [...] questions or concerns Unchanged evening primrose (Evening Watkins Oil oral capsule) Contact prescribing physician if [...] of urination Vertigo Vitamin D deficiency Normal [facility] CT LUNG CANCER SCREENINGon 0 02-14-2022 CT [...] by: MICHELLE ZHANG Date: 2022-02-14 14:42 Normal [facility] Physician Referralon 022 Physician Referral [id number] .00CD:127 Normal [facility] CULTURE URINEon 02-10-2022 CULTURE URINE Isolate 1 [...] Trimethoprim/Sulfamet hoxazole <=20 S F Normal [facility] Comment on above: Performed By: #### U RCX #### [facility] [address] [place] [address] Dr. Arias Michel INSULINon 02-09-2022 Insulin 16.8 uIU/mL Normal 2.6-24.9 [facility] Comment on above: Performed By: #### I NSULIN #### [facility] [address] [place] [address] Dr. Arias Michel T4, T3U, FTI LABCORPon 02-09 Free Thyroxine Index 1.7 Normal 1.2-4.9 [facility] Comment on above: Performed By: #### T HYLC #### [facility] [address] [place] [address] Dr. Arias Michel T3 Uptake 25 % Normal 24-39 [facility] Comment on above: Performed By: #### T HYLC #### [facility] [address] [place] [address] Dr. Arias Michel T4 [Mass/Vol] 6.6 ug/dL Normal 4.5-12.0 [facility] Comment on above: Performed By: #### T HYLC #### [facility] [address] [place] [address] Dr. Arias Michel CBC AUTO DIFFon 02-08-2022 BASO # 0.1 103/ul Normal 0.0-0.1 [facility] Comment on above: Performed By: #### C BC ####[facility] [address] [place], [place] [address]DrToan Michel Basophils/100 WBC (Bld) 1.7 % Normal 0.2-2.0 [facility] Comment on above: Performed By: #### C BC ####[facility] [address] [place], [place] [address]Dr. Arias Michel EO # 0.7 103/ul Normal 0.0-0.7 [facility] Comment on above: Performed By: #### C BC ####[facility] [address] [place], [place] [address]Dr. Arias Michel Eosinophils/100 WBC (Bld) 11.4 % Critically high 0.9-7.0 [facility] Comment on above: Performed By: #### C BC ####[facility] [address] [place] [address]Dr. Arias Michel Erythrocyte distribution width (RBC) [Ratio] 13.1 % Normal 11.0-15.0 [facility] Comment on above: Performed By: #### C BC ####[facility] [address] [place] [address]Dr. Arias Michel Hematocrit (Bld) [Volume fraction] 45.0 % Normal 36.0-48.0 [facility] Comment on above: Performed By: #### C BC ####[facility] [address] [place], [place] [address]Dr. Arias Michel Hemoglobin (Bld) [Mass/Vol] 14.8 g/dL Normal 12.0-16.0 [facility] Comment on above: Performed By: #### C BC ####[facility] [address] [place], [place] [address]Dr. Arias Michel IG # 0.01 10e3/ul Normal 0.00-0.03 [facility] Comment on above: Performed By: #### C BC ####[facility] [address] [place], [place] [address]Dr. Arias Michel IG % 0.2 % Normal 0.0-0.5 [facility] Comment on above: Performed By: #### C BC ####[facility] [address] [place], [place] [address]Dr. Arias Michel LYMPH # 1.6 103/ul Normal 1.2-3.8 [facility] Comment on above: Performed By: #### C BC ####[facility] [address] [place], [place] [address]Dr. Arias Michel Lymphocytes/100 WBC (Bld) 26.9 % Normal 20.5-60.0 [facility] Comment on above: Performed By: #### C BC ####[facility] [address] [place] [address]Dr. Arias Anand MANUAL DIFF REQ NO Normal [facility] Comment on above: Performed By: #### C BC ####[facility] [address] [place] [address]Dr. Arias Michel MCH (RBC) [Entitic mass] 29.7 pg Normal 26.7-34.0 [facility] Comment on above: Performed By: #### C BC ####[facility] [address] [place] [address]Dr. Arias Anand MCHC (RBC) [Mass/Vol] 32.9 g/dL Normal 29.9-35.2 [facility] Comment on above: Performed By: #### C BC ####[facility] [address] [place], [place] [address]Dr. Idaniajasmyne Michel MCV (RBC) [Entitic vol] 90.2 fL Normal 81.0-99.0 [facility] Comment on above: Performed By: #### C BC ####[facility] [address] [place], [place] [address]Dr. Arias Anand MONO # 0.5 103/ul Normal 0.3-0.8 [facility] Comment on above: Performed By: #### C BC ####[facility] [address] [place], [place] [address]Dr. Arias Michel Monocytes/100 WBC (Bld) 7.8 % Normal 1.7-12.0 [facility] Comment on above: Performed By: #### C BC ####[facility] [address] [place] [address]Dr. Arias Michel NEUT # 3.0 103/ul Normal 1.4-6.5 [facility] Comment on above: Performed By: #### C BC ####[facility] [address] [place], [place] [address]Dr. Arias Michel Neutrophils/100 WBC (Bld) 52.0 % Normal 43.0-75.0 [facility] Comment on above: Performed By: #### C BC ####[facility] [address] [place] [address]Dr. Arias Michel Platelet mean volume (Bld) [Entitic vol] 9.7 fL Normal 9.5-13.5 [facility] Comment on above: Performed By: #### C BC ####[facility] [address] [place] [address]Dr. Arias Michel PLT 228 103/ul Normal 150-450 [facility] Comment on above: Performed By: #### C BC ####[facility] [address] [place] [address]Dr. Arias Michel RBC 4.99 106/ul Normal 4.20-5.40 [facility] Comment on above: Performed By: #### C BC ####[facility] [address] [place] [address]Dr. Arias Michel WBC 5.8 103/ul Normal 4.0-11.0 [facility] Comment on above: Performed By: #### C BC ####[facility] [address] [place] [address]DrToan Michel GLYCOHEMOGLOBIN A1Con 2021 ADA RECOMMENDATION SEE BELOW Normal [facility] Comment on above: Result Comment: ADA RECOMMENDED LIMIT 4.0 - 6.0 ADA THERAPEUTIC TARGET < 7.0 ACTION SUGGESTED > 7.0 Performed By: #### A 1C #### [facility] [address] [place] [address] [address] Arias Michel Glucose [Mass/Vol] 105 mg/dL Normal [facility] Comment on above: Performed By: #### A 1C #### [facility] [address] [place] [address] [address] Arias Michel HbA1c (Bld) [Mass fraction] 5.3 % Normal 4.5-6.2 [facility] Comment on above: Performed By: #### A 1C #### [facility] [address] [place] [address] [address] Arias Michel IRONon 02-08-2022 Iron [Mass/Vol] 68.0 ug/dL Normal 50.0-170.0 [facility] Comment on above: Performed By: #### I CALLY MATTHEWS #### [facility] [address] [place] [address] [address] Arias Michel LIPID PROFILEon 02-08-2022 CHOL-HDL RATIO NORM SEE BELOW Normal [facility] Comment on above: Result Comment: 3.3 - 4.4 LOW RISK 4.4 - 7.1 AVERAGE RISK 7.1 - 11.0 MODERATE RISK >11.0 HIGH RISK Performed By: #### L IPID, TSH, CMP #### [facility] [address] [place] [address] [address] Arias Michel Cholesterol [Mass/Vol] 269 mg/dL Critically high <=200 [facility] Comment on above: Performed By: #### L IPID, TSH, CMP #### [facility] [address] [place] [address] [address] Arias Michel Cholesterol in HDL [Mass/Vol] 36 mg/dL Critically low 40-60 [facility] Comment on above: Performed By: #### L IPID, TSH, CMP #### [facility] [address] [place] [address] [address] Arias Michel Cholesterol in LDL [Mass/Vol] 185.4 mg/dL Normal [facility] Comment on above: Performed By: #### L IPID, TSH, CMP #### [facility] [address] [place] [address] [address] Arias Michel Cholesterol.total/Cho lesterol in HDL [Mass ratio] 7.5 {ratio} Normal [facility] Comment on above: Performed By: #### L IPID, TSH, CMP #### [facility] [address] [place] [address] [address] Arias Michel HDL NORMAL > or = 60 mg/dl - LO W CARDIOVASCULAR RISK <40 mg/dl - HIGH CARDIOVASCULAR RISK Normal [facility] Comment on above: Performed By: #### L IPID, TSH, CMP #### [facility] [address] [place] [address] [address] Arias Michel LDL CALC NORMAL SEE BELOW Normal [facility] Comment on above: Result Comment: <100 mg/dl OPTIMAL 100 - 129 mg/dl NEAR OR ABOVE OPTIMAL 130 - 159 mg/dl BORDERLINE HIGH 160 - 189 mg/dl HIGH >190 mg/dl VERY HIGH Performed By: #### L IPID, TSH, CMP #### [facility] [address] [place] [address] [address] Arias Michel Triglyceride [Mass/Vol] 238 mg/dL Critically high <=150 [facility] Comment on above: Performed By: #### L IPID, TSH, CMP #### [facility] [address] [place] [address] [address] Arias Michel VLDL CALC 47.6 mg/dL Normal [facility] Comment on above: Performed By: #### L IPID, TSH, CMP #### [facility] [address] [place] [address] [address] Arias Michel PROF 14(COMP METB)on 022 Albumin [Mass/Vol] 3.8 g/dL Normal 3.4-5.0 [facility] Comment on above: Performed By: #### L IPID, TSH, CMP ####[facility] [address] [place] [address]DrToan Michel Albumin/Globulin [Mass ratio] 1.3 {ratio} Normal [facility] Comment on above: Performed By: #### L IPID, TSH, CMP ####[facility] [address] [place] [id number] Michel ALP [Catalytic activity/Vol] 73 U/L Normal 46-116 [facility] Comment on above: Performed By: #### L IPID, TSH, CMP ####[facility] [address] [place] [id number] Michel ALT [Catalytic activity/Vol] 27 U/L Normal 14-59 [facility] Comment on above: Performed By: #### L IPID, TSH, CMP ####[facility] [address] [place] [id number] Michel Anion gap [Moles/Vol] 9.7 mmol/L Normal [facility] Comment on above: Performed By: #### L IPID, TSH, CMP ####[facility] [address] [place] [id number]. Arias Michel AST [Catalytic activity/Vol] 13 U/L Critically low 15-37 [facility] Comment on above: Performed By: #### L IPID, TSH, CMP ####[facility] [address] [place] [address]Dr. Arias Michel Bilirubin [Mass/Vol] 0.5 mg/dL Normal 0.2-1.0 [facility] Comment on above: Performed By: #### L IPID, TSH, CMP ####[facility] [address] [place] [address]Dr. Arias Michel Calcium [Mass/Vol] 8.9 mg/dL Normal 8.5-10.1 [facility] Comment on above: Performed By: #### L IPID, TSH, CMP ####[facility] [address] [place], [place] [address]Dr. Arias Michel Chloride [Moles/Vol] 105 mmol/L Normal 98-107 [facility] Comment on above: Performed By: #### L IPID, TSH, CMP ####[facility] [address] [place] [address]Dr. Arias Michel CO2 [Moles/Vol] 29.2 mmol/L Normal 21.0-32.[address] [facility] Comment on above: Performed By: #### L IPID, TSH, CMP ####[facility] [address] [place], [place] [address]Dr. Arias Michel Creatinine [Mass/Vol] 0.77 mg/dL Normal 0.55-1.02 [facility] Comment on above: Performed By: #### L IPID, TSH, CMP ####[facility] [address] [place] [address]Dr. Arias Michel EGFR-AF KAZAKH >60 Normal >=[address] [facility] Comment on above: Performed By: #### L IPID, TSH, CMP ####[facility] [address] [place] [address]Dr. Arias Michel EGFR-NON AF KAZAKH >60 Normal >=60 [facility] Comment on above: Performed By: #### L IPID, TSH, CMP ####[facility] [address] [place] [address]Dr. Arias Michel Globulin (S) [Mass/Vol] 2.9 g/dL Normal [facility] Comment on above: Performed By: #### L IPID, TSH, CMP ####[facility] [address] [place] [address]Dr. Arias Michel Glucose [Mass/Vol] 95 mg/dL Normal 74-106 [facility] Comment on above: Performed By: #### L IPID, TSH, CMP ####[facility] [address] [place] [address]Dr. Arias Michel Potassium [Moles/Vol] 3.9 mmol/L Normal 3.5-5.1 [facility] Comment on above: Performed By: #### L IPID, TSH, CMP ####[facility] [address] [place], [place] [address]Dr. Arias Michel Protein [Mass/Vol] 6.7 g/dL Normal 6.4-8.2 [facility] Comment on above: Performed By: #### L IPID, TSH, CMP ####[facility] [address] [place], [place] [address]Dr. Arias Michel Sodium [Moles/Vol] 140 mmol/L Normal 136-145 [facility] Comment on above: Performed By: #### L IPID, TSH, CMP ####[facility] [address] [place], [place] [address]Dr. Arias Michel Urea nitrogen [Mass/Vol] 13.0 mg/dL Normal 7.0-18.0 [facility] Comment on above: Performed By: #### L IPID, TSH, CMP ####[facility] [address] [place], [place] [address]Dr. Arias Michel Urea nitrogen/Creatinine [Mass ratio] 16.9 mg/mg Normal [facility] Comment on above: Performed By: #### L IPID, TSH, CMP ####[facility] [address] [place] [address]Dr. Arias Michel TSHon 02-08-2022 TSH 1.080 uIU/mL Normal 0.358-3.740 [facility] Comment on above: Performed By: #### L IPID, TSH, CMP ####[facility] [address] [place] [address]Dr. Arias Michel UA RANDOM W/MICROSCOPICon BACTERIA TRACE Abnormal NONE SEEN [facility] Comment on above: Performed By: #### U AMIC #### [facility] [address] [place] [address] [address] Arias Michel Bilirubin Ql (U) Negative Normal NEGATIVE [facility] Comment on above: Performed By: #### U AMIC #### [facility] [address] [place] [address] Dr. Arias Michel CA OX CRYSTALS MODERATE Normal [facility] Comment on above: Performed By: #### U AMIC #### [facility] [address] [place] [address] [address] Arias Michel CAST NONE SEEN Normal NONE SEEN [facility] Comment on above: Performed By: #### U AMIC #### [facility] [address] [place] [address] [address] Arias Michel Clarity (U) CLEAR Normal CLEAR [facility] Comment on above: Performed By: #### U AMIC #### [facility] [address] [place] [address] [address] Arias Michel Color (U) YELLOW Normal YELLOW [facility] Comment on above: Performed By: #### U AMIC #### [facility] [address] [place] [address] [address] Arias Michel Crystals LM Nom (Urine sed) SEEN Abnormal NONE SEEN [facility] Comment on above: Performed By: #### U AMIC #### [facility] [address] [place] [address] Dr. Arias Michel Epithelial cells LM Ql (Urine sed) FEW Abnormal NONE SEEN /RARE [facility] Comment on above: Performed By: #### U AMIC #### [facility] [address] [place] [address] [address] Arias Michel Glucose Ql (U) Negative Normal NEGATIVE [facility] Comment on above: Performed By: #### U AMIC #### [facility] [address] [place] [address] [address] Arias Michel Hemoglobin Ql (U) Negative Normal NEGATIVE [facility] Comment on above: Performed By: #### U AMIC #### [facility] [address] [place] [address] [address] Arias Michel Ketones Ql (U) Negative Normal NEGATIVE [facility] Comment on above: Performed By: #### U AMIC #### [facility] [address] [address] [address] Arias Michel LEUKOCYTES TRACE Abnormal NEGATIVE [facility] Comment on above: Performed By: #### U AMIC #### [facility] [address] [place] [address] Dr. Arias Michel MUCOUS SMALL Abnormal NONE SEEN [facility] Comment on above: Performed By: #### U AMIC #### [facility] [address] [address] [address] Arias Michel Nitrite Ql (U) Negative Normal NEGATIVE [facility] Comment on above: Performed By: #### U AMIC #### [facility] [address] [place] [address] Dr. Arias Michel pH (U) 6.0 [pH] Normal 5-9 [facility] Comment on above: Performed By: #### U AMIC #### [facility] [address] [place] [address] Dr. Arias Michel RBC 2-5 Abnormal 0-2 [facility] Comment on above: Performed By: #### U AMIC #### [facility] [address] [place] [address] Dr. Arias Michel SPEC GRAVITY >=1.030 Abnormal 1.005-<=1.025 [facility] Comment on above: Performed By: #### U AMIC #### [facility] [address] [place] [address] Dr. Arias Michel UA PROTEIN Negative Normal NEGATIVE/ TRACE [facility] Comment on above: Performed By: #### U AMIC #### [facility] [address] [place] [address] Dr. Arias Michel Urobilinogen Qn (U) 0.2 {Gladis'U}/dL Normal 0.2 - 1. 0 [facility] Comment on above: Performed By: #### U AMIC #### [facility] [address] [place] [address] Dr. Arias Michel WBC 5-10 Abnormal NONE SEEN [facility] Comment on above: Performed By: #### U AMIC #### [facility] [address] [place] [address] Dr. Arias Michel VITAMIN D 25 OHon 02-08-2022 VIT D 25-OH 45.1 ng/mL Normal [facility] Comment on above: Performed By: #### I BYRON VITAD #### [facility] [address] [place] [address] Dr. Arias Michel VIT D RANGES SEE BELOW Normal [facility] Comment on above: Result Comment: <20 ng/mL Vit D deficient 20 - <30 ng/mL Vit D insufficient 30 - 100 ng/mL Vit D sufficient >100 ng/mL Potential Toxicity Performed By: #### I BYRON VITAD #### [facility] [address] [place] [address] Dr. Arias Michel [facility] SARS-CoV-2 (COVID-19) RNA JASWANT+probe Ql (Unsp spec) Not detected Normal NOT DETECTED [facility] Comment on above: Result Comment: This test is not yet approved or cleared by the [place] FDA. When there are no FDA-approved or cleared tests available, and other criteria are met, FDA can make tests available under an emergency access mechanism called an Emergency Use Authorization (EUA). The EUA for this test is supported by the Geometrician of Health and Human Service's (HHS's) declaration [...] consistent with SARS-CoV-2. Performed By: #### C [facility] #### [facility] [address] [address] [address] Arias Michel Provider Letteron 05-05-2021 Provider Letter May 05, 2021 May 05, 2021 LUIS LESTER [address] [place] [phone] LUIS LESTER 1960 Dear Luis Lester , [...] to this matter. Sincerely, [facility] [address], [place] [address] [facility] Vital Signs Date Time Vital Sign Value Performing Clinician Maame devi 02-28-2022 15:31-0400 Blood Pressure Location [employer] [facility] 02-28-2022 15:31-0400 Diastolic blood pressure 82 mm[Hg] [employer] [facility] 02-28-2022 15:31-0400 Heart rate 84 /min [employer] [facility] 02-28-2022 15:31-0400 Respiratory rate 16 /min Kody [employer] [facility] 02-28-2022 15:31-0400 Systolic blood pressure 126 mm[Hg] Kody Cynny [facility] Encounters Encounter Date Encounter Type Care Provider Facility Start: 09-12-2023 End: 09-12-2023 ambulatory ENRICO Hill LOKESHRANDI Not Available Start: 05-28-2022 End: 05-29-[address] WILEY ZAMARRIPA . Facility: Start: 05-09-2022 End: 05-10-[address] WILEY ZAMARRIPA . Facility: Start: 04-28-2022 Encounter for preprocedural laboratory examination DR KODY NICHOLSON . [facility] Start: 04-25-2022 End: 04-26-2022 ambulatory Kody NICHOLSON Facility:CD:[id number] Start: 04-21-2022 End: 04-22-[address] KODY NICHOLSON . Facility: Start: 04-21-2022 End: 04-22-2022 Encounter for preprocedural laboratory examination DR KODY NICHOLSON . Facility: Start: 02-28-2022 End: 03-01-2022 ambulatory Wiley Zamarripa PROVIDER Facility:[facility] Start: 02-28-2022 End: 02-28-2022 Patient encounter procedure Kody NICHOLSON General Surgery [facility] Start: 02-14-2022 End: 02-15-[address] WILEY ZAMARRIPA . Facility: Start: 02-09-2022 ambulatory Kody NICHOLSON Facility :[facility] Start: 02-08-2022 End: 02-09-[address] WILEY ZAMARRIPA . Facility: Start: 02-01-2022 End: 02-01-[address] WILEY ZAMARRIPA . Facility: Start: 10-19-[address] WILEY ZAMARRIPA . Facili ty:[facility] Start: 05-15-2021 ambulatory MD Quinton ROB [facility] Procedures Date Procedure Procedure Detail Performing Clinician Start: 10-23-2019 Arthroscopy of knee Leif NICHOLSON Start: 10-23-2019 Chondrectomy of semi lunar cartilage of knee Kody NICHOLSON Comment on above: subtotal medial meni scectomy Start: 10-23-2019 Chondroplasty Kody LIZ Comment on above: chondroplasty medial femoral condyle Appendectomy Kody NICHOLSON section Kody SOTO L section Kody NIL L Colonoscopy Kody SOTOL Decompression of med milagros nerve Kody NILL Dilation and inserti on of tube into esophagus Kody NILL Excision of lumbar intervertebral disc Kody NILL Extraction of wisdom tooth M ichferny SOTOL Tonsillectomy Kody SOTOL Total abdominal hysterectomy with bilateral salpingo-oophorectomy Kody SOTOL Immunizations Immunization Date Immunization Notes Care Provider Fa cili 08-31-2020 SARS-CoV-2 (COVID-19 ) Ad26 vaccine, recombinant Kody NICHOLSON [facility] Payers Date Payer Category Payer Unknown [id number] 2.16.8 [id number] 1960 Unknown [id number] 2.16.8 [id number] 1960 Unknown [id number] 2.16.8 [id number] 1962 Unknown [id number] 2.16.84 [id number] 1962 Unknown [id number] 2.16.84 [id number] 1962 Unknown [id number] 2.16.84 [id number] 1962 Unknown [id number] 2.16.84 [id number] 1962 Unknown [id number] 2.16.84 [id number] 1962 Unknown [id number] 2.16.84 [id number] 1962 Unknown [id number] 2.16.84 [id number] 1962 Unknown [id number] 2.16.84 [id number] 1962 Unknown [id number] 2.16.84 [id number] 1962 Unknown [id number] 2.16.84 [id number] 1957 Medicaid [id number] 1957 Self-pay [id number] 1957 Unknown [id number] Social History Date Type Detail Facility Start: 02-28-2022 Tobacco smoking status Heavy t obacco smoker (finding) [facility] Tobacco smoking status Never Gener al [facility] [place] Sex Assigned At Female Genera l [facility] [place] Functional Status Date Assessment Result Facility 02-28-2022 Functional Status N/A General [facility] Clinical Note 05-11-2022 Note Date & [...] authenticated by: MICHELLE ZHANG Date: 2022-05-10 22:20 [facility] Clinical Note 04-25-2022 Note Date & Type Note Facility 04-25-2022 Note OPERATIVE NOTE OPERATION DATE: 04/25/2022 PREOPERATIVE DIAGNOSIS: Positive FIT test. POSTOPERATIVE DIAGNOSIS: Sigmoid diverticulosis. PROCEDURE: Colonoscopy to cecum. SURGEON: Kody Nill, M.D. ANESTHESIA: Monitored anesthesia care. ESTIMATED BLOOD [...] good condition. CC: Wiley Zamarripa M.D. [facility] Clinical Note 02-28-2022 Note Date & [...] Tab, 1 gm= (more content not included)... [facility] Comment on above: Result Comment: Elec tronically Signed By: LYN SOLIZ, Kody Nick.shirley\Date and Time Signed: 02/28/22 16:40 EDT Evaluation + Plan note Note Date & Type Note Facility Evaluation + Plan note No data available for this section General Surgery [facility] Discharge instructions Note Date & Type Note Facility Hospital Discharge instructions No data available for this section General Surgery [place] Progress note Note Date & Type Note Facility Progress note No data available for this section General Surgery [place] Summary Purpose Family History No Family History Records FoundNo Family History Records FoundNo Family History Records Found Advance Directives No Advanced Directives Records FoundNo Advanced Directives Records FoundNo Advanced Directives Records Found Additional Source Comments Patient Care team informatio n (unrecognized section and content) Personnel Name: Wiley Zamarripa MD Address: Address: [address] [place] [address] INFORMATION SOURCE (unrecogn ized section and content) DATE CREATED AUTHOR 04/30/2022 [facility] DATE CREATED AUTHOR AUTHOR'S ORGANIZ ATION 08/23/2022 [facility] DATE CREATED AUTHOR AUTHOR'S ORGANIZ ATION 09/14/2023 [facility] EPIC FOR RECORDS PERTAINING TO PATIENTS WHO ARE [...] BE BASED ON THE PRIMARY CLINICAL RECORDS. [facility] [employer] provides no warranty or guarantee of the accuracy or completeness of information in this document.
[2024-06-30 10:44] LABS: Estimated Average Glucose 114 mg/dL; Glycohemoglobin A1C 5.6 % (4.5-6.2)
[2024-06-30 11:17] LABS: Alanine Aminotransferase 30 U/L (14-59); Albumin Globulin Ratio 1.3; Albumin Level 3.8 g/dL (3.4-5.0); Alkaline Phosphatase 71 U/L (46-116); Anion Gap 12.9; Aspartate Amino Transferase 15 U/L (15-37); BUN Creatinine Ratio 18.8; Bilirubin Total 0.4 mg/dL (0.2-1.0); Calcium 8.9 mg/dL (8.5-10.1); Carbon Dioxide 29.3 mmol/L (21.0-32.0); Chloride 105 mmol/L (98-107); Chol HDL Ratio 4.5; Cholesterol 193 mg/dL (<=200); Estimated GFR (African America >60 (>=60 mL/min/1.73m^2); Estimated GFR (Non-African Ame >60 (>=60 mL/min/1.73m^2); Free T3 2.54 pg/mL (2.18-3.98); Globulin 2.9 g/dL; Glucose 96 mg/dL (74-106); HDL Cholesterol 43 mg/dL (40-60); Potassium 4.2 mmol/L (3.5-5.1); Sodium 143 mmol/L (136-145); Thyroid Stimulating Hormone 1.878 uIU/mL (0.358-3.740); Total Protein 6.7 g/dL (6.4-8.2); Triglycerides 168 mg/dL (<=150); VLDL CHOLESTEROL 33.6 mg/dL
== END 2024-06-30 10:12 | disposition home or self-care (01) ==
LOC: LAB 10:15
PROVIDERS: PCP Family Medicine; Visit Provider Family Medicine
DX: E78.5 Hyperlipidemia, unspecified (principal); R53.83 Other fatigue; R73.09 Other abnormal glucose; I10 Essential (primary) hypertension; Z12.12 Encounter for screening for malignant neoplasm of rectum; E61.1 Iron deficiency
CPT/HCPCS: 36415; 80053; 80061; 83036; 83540; 84436; 84443; 84481; 85025

== ENCOUNTER 2024-08-11 13:39 | Outpatient (OUT) | payer MEDICARE, SELFPAY ==
--- NOTE | 2024-08-11 13:54 | CT_ITS ---
[address] [address] Patient Name: LINDSEY LESTER MRN: [id number] date: 1960 Sex: F Assigned Patient Location: CT Current Patient Location: CT Accession/Order Number: [id number] Exam Date: 08/11/2024 14:12 Report Date: 08/11/2024 14:15 At the request of: WILEY COLUNGA MD Procedure: CT lung screening low-dose CT CHEST WITHOUT CONTRAST, LOW DOSE SCREENING: CLINICAL DATA: A 63-year old current smoker COMPARISON: Lung screening CT 06/25/2023 TECHNIQUE: Noncontrast axial CT scan images of the chest were obtained under the low dose screening CT protocol. Coronal and sagittal reconstructed images were also submitted. FINDINGS: Mediastinum : Suboptimal evaluation due to low-dose technique. Thoracic aorta appears normal in caliber. Pulmonary trunk appears nondilated. No pericardial effusion. No lymphadenopathy. The esophagus is grossly unremarkable. Large hiatal hernia. Lungs: No focal consolidation, pneumothorax or pleural effusion. Trachea and distal airways appear patent. Mild bibasilar atelectasis/scarring. No suspicious noncalcified pulmonary nodule or mass. Upper abdomen: No acute findings. Bony thorax and chest wall: Soft tissues surrounding the chest wall demonstrate no acute findings. Osseous structures demonstrate degenerative change. CT/CT lung screening low-dose IMPRESSION: NO SUSPICIOUS PULMONARY NODULE. LUNG - RADS Version 1.0 Assessment: Category 1, Negative (No nodules and definitely benign nodules). Management: Continue annual lung screening with LDCT in 12 months. Impression dictated by: Adán Castillo Jr., D.O.08/11/2024 2:15 PM Dictation Location: [place] Electronically authenticated by: [id number] Y Date: 08/11/2024 14:15
== END 2024-08-11 13:40 | disposition home or self-care (01) ==
LOC: CT 13:39
PROVIDERS: PCP Family Medicine; Visit Provider Family Medicine
DX: Z87.891 Personal history of nicotine dependence (principal)
CPT/HCPCS: 71271

== ENCOUNTER 2024-10-22 14:05 | Outpatient (OUT) | payer MEDICARE, SELFPAY ==
--- OUTSIDE RECORDS SUMMARY | 2024-08-11 16:27 | XMS_ITS ---
Author Organization The [facility] in [place] Address [address] [place] [address] Care Team Providers Care Ms Sql Dba Name Role Phone Isacc Zamarripa Primary Care Provider REASON FOR VISIT CT Results- Encounters Encounter Location Date Provider Diagnosis [address] [address] 08/11/2024 Isacc Marilou Plan Of Treatment Next Appt Details Provider Name:Isacc Zamarripa, 01:15:00 PM, [address] [place], [address], Progress Notes * Luis ALAS MDOB:[birth year] (63 yo F)Acc No.[id number]:08/11/2024 Patient: Sheila Luis HUITRON :1960 A ge:63 Y S ex:Female Address:[address] [place] [address], [phone] * true * Date: Generated for Printi ng/Faxing/eTransmitting on: 0 10/22/2024 05:26 AM EDT
--- OUTSIDE RECORDS SUMMARY | 2024-09-28 11:15 | XMS_ITS ---
Author Organization The [facility] in [place] Address [address] [place] [address] Care Team Providers Care Security Police Name Role Phone Isacc Zamarripa Primary Care Provider Allergies Allergen (clinical drug ingredient) Drug/Non Drug Allergy documented on EMR Reaction Allergy Type Onset Date Status meperidine Demerol violently ill Drug Allergy Ac tive acetaminophen / oxycodone Percocet vomiting Drug Allergy Active azithromycin Zithromax vomiting Drug Allergy Acti ve REASON FOR VISIT 3 month f/u, ongoing left arm pain Medications Medication SIG (Take, Route, Frequency, Duration) Notes Start Date End Date Status Simvastatin 20 MG 1 tablet in the evening Orally Once a day for 90 days 02/22/2023 Active Omeprazole 40 MG 1 capsule 30 minutes before morning meal Orally Once a day for 90 days Active Test Strips - 1 test strip via meter once daily DX. E11.9 for 90 days Patient uses Freestyle Lite Test Strips 06/03/2023 Active Sucralfate 1 GM TAKE 1 TABLET BY MOUTH FOUR TIMES DAILY Oral qid for 30 days Active Verapamil HCl ER 360 mg TAKE 1 CAPSULE BY MOUTH DAILY for 90 Active Diclofenac Sodium 75 MG 1 tablet as needed Orally Twice a day for 90 days 09/20/2023 Active FeroSul 325 (65 Fe) MG 1 tablet Orally twice a day for 90 days Active DULoxetine HCl 60 MG 1 capsule Orally twice daily for 90 days Active lamoTRIgine 25 MG 1 tablet Orally BID for 90 days Active Glucometer - use daily R73.9 Daily 06/25/2023 Active Carvedilol 25 mg TAKE 1 TABLET BY MOUTH TWICE DAILY for 90 Active Social History Tobacco Use: Social History Observation Description Date Details (start date - stop date) Former Smoker 05/20/1982 - 08/12/2022 Tobacco Use/Smoking Question Answer Notes Patient is a former smoker When did you start smoking? 05/20/1982 When did you stop smoking? 08/12/2022 How long has it been since you last smoked? 3-6 months AUDIT-C (Standard) Question Answer Notes Did you have a drink containing alcohol in the p ast year? No Points 0 Interpretation Negative Vital Signs Blood pressure systolic 112 mm Hg 09/29/19 25 Blood pressure diastolic 68 mm Hg 025 Height 63 in 09/28/2024 Weight 168 lbs 09/28/2024 BMI 29.76 kg/m2 09/28/2024 Encounters Encounter Location Date Provider Diagnosis [facility] [address] [place] [address] 09/28/2024 Isacc Zamarripa Hypertension I10 ; Diabetes E11.9 ; Depression F32.9 ; Generalized arthritis M19.90 and Shoulder impingement, left M75.42 Assessments Encounter Date Diagnosis (ICD Code) Assessment Notes Treatment Notes Treatment Clinical Notes Section Notes 09/28/2024 Hypertension (ICD-10 - I10) 09/28/2024 Diabetes (ICD-10 - E11.9) 09/28/2024 Depression (ICD-10 - F32.9) 09/28/2024 Generalized arthritis (ICD-10 - M19.90) 09/28/2024 Shoulder impingement, left (ICD-10 - M75.42) MRIn neeedse - laxity in left shoiler like;ly torn rotator cuff - needs MRI Plan Of Treatment Treatment Notes Assessment Notes Shoulder impingement, left MRIn neeedse - laxity in left shoiler like;ly torn rotator cuff - needs MRI Pending Test Test Name Order Date MRI SHOULDER LT WO CON 09/28/2024 Next Appt Details Provider Name:Isacc Zamarripa, 01:15:00 PM, [address] [place], [address], Progress Notes * Luis ALAS MDOB:[birth year] (63 yo F)Acc No.[id number]:09/28/2024 Progress Note Patient: Luis MIX Provider: Omar Zamarripa ([facility]), :1960 A ge:63 Y S ex:Female Date:09/28/2024 Address:[address] [place], [place] [id number] Check In:03:09 PM ESTCheck O ut:03:58 PM EST Subjective: * Chief Complaints: * 3 month f/u, ongoing left arm pain * HPI: G eneral: leftarm pain - 3 months - had major bruising - didnt go to er - doping hear and ice for last 3 month - some ROM exercises from Chiropacter dm sugars - sugars 80 - 90 ypertension - bp stable. * ROS: E ENT: hearing changes d enies. v isual changes d enies.?non-healing mouth sores d enies. s wollen glands or neck lumps d enies. h oarseness d enies. s ore throat d enies. d ifficulty swallowing d enies. n ose bleeds d enies. n josee congestion d enies. e ar ache d enies. e ar discharge?denies. r inging in ears d enies. l ight sensitivity d enies. e ye pain d enies. b lurring d enies. e ye irritation d enies. d ouble vision d enies.?vision loss d enies. G eneral/Constitutional: Sweats: D enies. F atigue d enies. S leep problems d enies. A norexia d enies. M alaise d enies. W eight loss d enies.?Fatigue or Weakness d enies. F ever or Chills d enies. C ardiovascular: Shortness of Breath w/lying flat d enies. L ightheadedness/dizziness d enies. C hest tightness/ heavy pressure d enies. S welling of legs, ankles, or feet d enies. W aking up with shortness of breath d enies. C hest pain denies. P alpitations d enies. W eight gain d enies. R espiratory: Chronic or frequent cough d enies. C oughing up blood?denies. D ifficulty breathing d enies. P roductive cough d enies. S noring?denies. S hortness of breath that awakens from sleep (PND) d enies. C hest pain d enies. S putum production d enies. W heezing d enies. M usculoskeletal: Joint pain d enies. J oint Fluid d enies. B ack pain d enies. K nee pain d enies. N alise pain d enies. J oint Stiffness d enies. M uscle cramps d enies. W eakness of muscles d enies. A rthritis d enies. M uscle aches d enies. P ain in shoulder(s) d enies. S wollen joints d enies. 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, left Modified On:05/24/2023/U Status:confirmed M19.90 Generalized arthriti s Modified On:09/20/2023/U Status:confirmed K29.70 Gastritis Modified On:12/25/2023/U Status:confirmed F32.9 Depression Modified On:03/26/2024/U Status:confirmed E11.9 Diabetes Modified On:07/01/2024/U Status:confirmed * Medical History: * Surgical History: A rthroscopy of Left knee 10/2019Chondroplasty Medial Femoral Condyle 10/2019Subtotal Medial Meniscectomy 10/2019Carpal Tunnel Release section x2 Esophageal Dilation Tonsillectomy Cysto olonoscopy 04/2022 * Hospitalization/Major Diagno stic Procedure: M igraine 10/2018 * Family History: F ather: alive, prostate cancer, diagnosed with Other malignant neoplasm of unspecified site.?Mother: , breast cancer, anxiety, pancreatic cancer, diagnosed with Other malignant neoplasm of unspecified site. B nilson(s): alive. S on(s): alive. D grzegorz(s): alive. P tamiko Grandmother: , diagnosed with Unspecified heart disease. 1 brother(s) - healthy. 1 son(s) , 1 daughter(s) - healthy. . * Social History: T obacco Use: T obacco Use/Smoking P atient is a f ormer smoker W hen did you start smoking? 0 05/20/1982 W hen did you stop smoking? 0 08/12/2022 H ow long has it been since you last smoked??3-6 months D rug/Alcohol: A REX-C (Standard) D id you have a drink containing alcohol in the past year? N o P oints 0 I nterpretation N egative * Medications: T akingCarvedilol 25 mg Tablet TAKE 1 TABLET BY MOUTH TWICE DAILY Diclofenac Sodium 75 MG Tablet Delayed Release 1 tablet as needed Orally Twice a day DULoxetine HCl 60 MG Capsule Delayed Release Particles 1 capsule Orally twice daily FeroSul(Ferrous Sulfate) 325 (65 Fe) MG Tablet 1 tablet Orally twice a day Glucometer - - use daily R73.9 Daily lamoTRIgine 25 MG Tablet 1 tablet Orally BID Omeprazole 40 MG Capsule Delayed Release 1 capsule 30 minutes before morning meal Orally Once a day Simvastatin 20 MG Tablet 1 tablet in the evening Orally Once a day Sucralfate 1 GM Tablet TAKE 1 TABLET BY MOUTH FOUR TIMES DAILY Oral qid Test Strips - - 1 test strip via meter once daily DX. E11.9 , Notes to Pharmacist: Patient uses Freestyle Lite Test StripsVerapamil HCl ER 360 mg Capsule Extended Release 24 Hour TAKE 1 CAPSULE BY MOUTH DAILY Medication List reviewed and reconciled with the patientTaking Carvedilol 25 mg Tablet TAKE 1 TABLET BY MOUTH TWICE DAILY Taking Diclofenac Sodium 75 MG Tablet Delayed Release 1 tablet as needed Orally Twice a day Taking DULoxetine HCl 60 MG Capsule Delayed Release Particles 1 capsule Orally twice daily Taking FeroSul(Ferrous Sulfate) 325 (65 Fe) MG Tablet 1 tablet Orally twice a day Taking Glucometer - - use daily R73.9 Daily Taking lamoTRIgine 25 MG Tablet 1 tablet Orally BID Taking Omeprazole 40 MG Capsule Delayed Release 1 capsule 30 minutes before morning meal Orally Once a day Taking Simvastatin 20 MG Tablet 1 tablet in the evening Orally Once a day Taking Sucralfate 1 GM Tablet TAKE 1 TABLET BY MOUTH FOUR TIMES DAILY Oral qid Taking Test Strips - - 1 test strip via meter once daily DX. E11.9 , Notes to Pharmacist: Patient uses Ale[employer]style WhoWannae Test StripsTaking Verapamil HCl ER 360 mg Capsule Extended Release 24 Hour TAKE 1 CAPSULE BY MOUTH DAILY Medication List reviewed and reconciled with the patient * Allergies: D emerol: violently ill - AllergyZithromax: vomiting - AllergyPercocet: vomitingno[Allergies Verified] Objective: * Vitals: W t:168lbs, Ht: 63 in, BP:112/68mm Hg, BMI:29.76Index, Ht-cm: 160.02 cm, Wt-k.2 kg. * Examination: P hysical Exam: GENERAL: w ell developed, well nourished, in no acute distress. HEAD: n ormocephalic/atraumatic. EYES: p upils equal, round and reactive to light, conjunctivae and sclerae normal. EARS: n o deformity or lesion of external ear, canals and TM appear normal bilaterally, TM's intact, not inflamed with normal light reflex, hearing grossly normal to conversational speech. NOSE: n o deformity, discharge, inflammation, or lesions.? MOUTH: m ucous membranes moist, normal oropharynx and posterior pharynx without lesions or exudates, tongue normal, dentition normal. NECK: n alise supple, no masses or palpable cervical nodes, trachea midline, thyroid without nodules, masses, tenderness, or enlargement. CHEST: n o chest wall deformity, no chest wall tenderness.? LUNGS: n ormal respiratory effort and clear to auscultation, no wheezes, rales, or rhonchi, good air exchange. CARDIO: r egular rate and rhythm, normal S1 and S2, nor murmur, rub, or gallop. PULSES: n ormal capillary refill. ABDOMEN: s oft, non-distended, non-tender, no masses. MUSCULOSKELETAL: n o deformity or scoliosis noted, normal range of motion, joints normal, no erythema, edema, effusion, or ecchymosis. EXTREMITY: P oor rom in left shoulder with + laxity donsistent with torn rotator cuff. NEUROLOGIC: g rossly normal. SKIN: n o rashes, ulcerations, or suspicious lesions. LYMPH NODES: n o cervical adenopathy, nodes normal. MENTAL STATUS: a lert and oriented x3, normal mood and affect. Assessment: * Assessment: 1. H ypertension - I10 (Primary) 2 . D iabetes - E11.9 3 .?Depression - F32.9 4 . G eneralized arthritis - M19.90 5 .?Shoulder impingement, left - M75.42 Plan: * Treatment: * Procedure Codes: * Preventive Medicine: Screenings/Counseling: B CA ACTION PLAN Above Normal BMI Follow-up D ietary management education, guidance, and counseling * * Sign off status: Completed Visit Status: C HK (Check Out) true * Provider: Omar Zamarripa ([facility])MD Date: 0 09/28/2024 Generated for Printi ng/Faantoniog/eTransmitting on: 0 10/22/2024 05:26 AM EDT History and Physical Notes * HPI (History of Present Illness) Category Sub-Category Detail Notes Category Not es General leftarm pain - 3 months - had major bruising - didnt go to er - doping hear and ice for last 3 month - some ROM exercises from Chiropacter dm sugars - sugars 80 - 90 ypertension - bp stable Examination Category Sub-Category Detail Notes Category Not es Physical Exam GENERAL: well developed, well nourished, in no acute distress HEAD: normocephalic/atraum atic EYES: pupils equal, round and reactive to light, conjunctivae and sclerae normal EARS: no deformity or lesi on of external ear, canals and TM appear normal bilaterally, TM's intact, not inflamed with normal light reflex, hearing grossly normal to conversational speech NOSE: no deformity, discha rge, inflammation, or lesions MOUTH: mucous membranes martha st, normal oropharynx and posterior pharynx without lesions or exudates, tongue normal, dentition normal NECK: neck supple, no mass es or palpable cervical nodes, trachea midline, thyroid without nodules, masses, tenderness, or enlargement CHEST: no chest wall deform ity, no chest wall tenderness LUNGS: normal respiratory e ffort and clear to auscultation, no wheezes, rales, or rhonchi, good air exchange CARDIO: regular rate and rhy thm, normal S1 and S2, nor murmur, rub, or gallop PULSES: normal capillary ref ill ABDOMEN: soft, non-distended, non-tender, no masses RECTAL: MUSCULOSKELETAL: no deformity or scol iosis noted, normal range of motion, joints normal, no erythema, edema, effusion, or ecchymosis EXTREMITY: Poor rom in left flor ulder with + laxity donsistent with torn rotator cuff NEUROLOGIC: grossly normal SKIN: no rashes, ulceratio ns, or suspicious lesions LYMPH NODES: no cervical adenopat hy, nodes normal MENTAL STATUS: alert and oriented x 3, normal mood and affect
--- OUTSIDE RECORDS SUMMARY | 2024-09-28 11:55 | XMS_ITS ---
Author Organization The [facility] in [place] Address [address] [place] [address] Care Team Providers Care Air Conditioning Mechanic Industrial Name Role Phone Isacc Zamarripa Primary Care Provider REASON FOR VISIT mammogram Encounters Encounter Location Date Provider Diagnosis [facility] [address] [place] [address] 09/28/2024 Isacc Zamarripa Screening for breast cancer Z12.31 Assessments Encounter Date Diagnosis (ICD Code) Assessment Notes Treatment Notes Treatment Clinical Notes Section Notes 09/28/2024 Screening for breast cancer (ICD-10 - Z12.31) Plan Of Treatment Pending Test Test Name Order Date BI MAMMOGRAM SCREENING TOMOSYNTHESIS JUANITA ATERAL 09/28/2024 Next Appt Details Provider Name:Isacc Zamarripa, 01:15:00 PM, [address] [place], [address], Progress Notes * Luis ALAS MDOB:[birth year] (63 yo F)Acc No.[id number]:09/28/2024 Patient: Sheila DENNYMARYSELuis :1960 A ge:63 Y S ex:Female Address:[address] [place] [address], [phone] Subjective: * Chief Complaints: * M ammogram * Medical History: * Surgical History: * Hospitalization/Major Diagno stic Procedure: * Medications: Objective: * Vitals: * Physical Examination: Assessment: * Assessment: 1. S creening for breast cancer - Z12.31 (Primary) Plan: * Treatment: * Procedure Codes: * true * Date: Generated for Henny amaral/Gutierrez/Carlie on: 0 10/22/2024 05:26 AM EDT
--- OUTSIDE RECORDS SUMMARY | 2024-10-22 14:07 | XMS_ITS | Clinical Summary ---
Author Organization [facility] Address [address] [place] [address] Care Team Providers Care Farm Service Adviser Name Role Phone Unavailable Primary Care Provider Unavailabl e Social History Tobacco Use Types Packs/Day Years Used Date Smoking Tobacco: Never Assessed [place] Safety & Environment Answer Date Rec orded Fear of Current or Ex-Partner Not on file Emotionally Abused Not on file 07/11/2023 Physically Abused Not on file 07/11/2023 Sexually Abused Not on file 07/11/2023 Physically or Sexually Abused Not on file Sex and Gender Information Value Date Recorded Sex Assigned at Not on file Gender Identity Not on file Sexual Orientation Not on file Plan of Treatment Not on file
--- OUTSIDE RECORDS SUMMARY | 2024-10-22 14:07 | XMS_ITS | Encounter Summary ---
Author Organization [facility] Address [address] [place] [address] Care Team Providers Care Water Taxi Boat Mate Name Role Phone Quinn Zamarripa MD Primary Care Provider [phone] Encounter Details Date Type Department Care Team (Late st Contact Info) Description 08/29/2023 Abstract [facility] [address] [place] [phone] Yady Molina Social History Tobacco Use Types Packs/Day Years Used Date Smoking Tobacco: Never Assessed Comments Unknown Sex and Gender Information Value Date Recorded Sex Assigned at Not on file Legal Sex Female 8:06 PM EDT Gender Identity Not on file Sexual Orientation Not on file documented as of this encounter Plan of Treatment Not on file documented as of this encounter Visit Diagnoses Not on filedocumented in this encounter Care Teams Water Taxi Boat Mate Relationship Specialty Start Date End Date Quinn Zamarripa MD PCP - General Family Medicine 07/31/23 documented as of this encounter
--- OUTSIDE RECORDS SUMMARY | 2024-10-22 14:07 | XMS_ITS | Clinical Summary ---
Author Organization [facility] Address [address] [place] [address] Care Team Providers Care Molder Machine Name Role Phone Quinn Zamarripa MD Primary Care Provider [phone] Allergies Active Allergy Reactions Criticality Noted Date Comments Meperidine 09/12/2023 Oxycodone-Acetaminophen 09/12/2023 Azithromycin 09/12/2023 Medications ferrous sulfate (FeroSul) 325 (65 Fe) MG tablet Take 325 mg by mouth in the morning. Take with meals. Active omeprazole (PriLOSEC) [address] capsule Take 40 mg by mouth in the morning. Take before meals. Do not crush or chew.. Active DULoxetine (Cymbalta) [address] capsule Take 60 mg by mouth Daily Do not crush or chew. Active lamoTRIgine (LaMICtal) 25 MG tablet Take 25 mg by mouth in the morning and 25 mg before bedtime. Active verapamil SR (Calan SR) 180 MG ER tablet Take 180 mg by mouth at bedtime Do not crush or chew.2 tablet Active simvastatin (Zocor) 20 MG tablet Take 20 mg by mouth at bedtime 1 tablet Active carvedilol (Coreg) 25 MG tablet Take 25 mg by mouth in the morning and 25 mg in the evening. Take with meals. Active Active Problems Problem Noted Date Diagnosed Date TIA (transient ischemic attack) 09/12/2023 Overview (09/12/2023): Luis is a 62 year old female with past medical history TIA, anemia, anxiety, depression, GERD, Diverticulitis, and HTN. She had her first stroke like episode when she was 32 years old. She had weakness on the left side, facial droop on the left, confusion, and slurred speech. She had another episode in 2014 with negaitve evalaution for acute ischemia. Her last episode, similar symptoms, was in 04/2023 but she did not go to the ER. Differential would include TIA. However, given similar presentation of her symptoms compliucated migraine or hemiparetic migraine is also a conisderation. MRI brain in 2011 was normal. TCD, carotid US and EEG were normal as below. She continues to have brain fog and is now reproting blurred vision. She just got new glasses which did not help. If she covers the left eye the vision is better. Etiology is unclear but I would like an MRI brain to assess for new areas of ischemia or worsening SVID that would contribuet to her cognitive symptoms Hypersomnia 09/12/2023 Overview (09/12/2023): She reports 4-6 hours of broken sleep a night. She does have some S/S of an underlying sleep disorder and would benefit from a PSG to further evaluate this possibility. She states she had one several years ago that was normal. Given her history of TIA or complicated migrain and persistent insomnia and hypersomnalence I think we should reassess this so it can be treated if necessary. We discussed sleep habits at length and she will work on creating a better sleep routine. She should limit melatonin to 5mg and take this 2 hours before bedtime. NONA (obstructive sleep apnea) 09/12/2023 Transient alteration of awareness 09/12/2023 Family History Medical History Relation Name Comments Cancer Father Coronary artery disease Father Hyperlipidemia Father Hypertension Father Migraines Father Cancer Mother Asthma Sibling Migraines Sibling Relation Name Status Comments Father Alive Mother Sibling Alive Social History Tobacco Use Types Packs/Day Years Used Date Smoking Tobacco: Every Day Cigarettes Tobacco Cessation:Ready to Q uit: Not Asked; Counseling Given: Not Answered Comments Unknown Sex and Gender Information Value Date Recorded Sex Assigned at Not on file Legal Sex Female 8:06 PM EDT Gender Identity Not on file Sexual Orientation Not on file Last Filed Vital Signs Vital Sign Reading Time Taken Comments Blood Pressure 124/82 09/12/2023 11:31 AM EDT Pulse 70 09/12/2023 11:31 AM EDT Temperature - - Respiratory Rate - - Oxygen Saturation 96% 09/12/2023 11:31 AM EDT Inhaled Oxygen Concentration - - Weight 74.8 kg (165 lb) 09/12/2023 11:31 AM EDT Height 160 cm (5' 3 ) 09/12/2023 11:31 AM EDT Body Mass Index 29.23 09/12/2023 11:31 AM EDT Plan of Treatment Health Maintenance Due Date Last Done Comments CT Colonography 1962 Colonoscopy 1962 Colorectal Cancer Screening 1962 FIT-DNA 1962 FIT 1962 FOBT 1962 Sigmoidoscopy 1962 Pap Smear 12/01/1983 Cervical Cancer Screening 1992 HPV/Cotest 1992 Mammogram 2002 Influenza Vaccine (Season Ended) 2025 04/28/2022, 02/19/2021, 02/15/2021, Additional history exists Insurance [employer] MEDICAID [place] Care Teams Molder Machine Relationship Specialty Start Date End Date Quinn Zamarripa MD PCP - General Family Medicine 07/31/23
--- OUTSIDE RECORDS SUMMARY | 2024-10-22 14:07 | XMS_ITS | Referral Summary ---
Author Organization [facility] Address [address] [place] [address] Care Team Providers Care Teacher Of The Hearing Impaired Name Role Phone Unavailable Primary Care Provider [...]
--- OUTSIDE RECORDS SUMMARY | 2024-10-22 14:07 | XMS_ITS | Encounter Summary ---
Author Organization [facility] Address [address] [place] [address] Care Team Providers Care Sand Mixer Operator Name Role Phone Quinn Zamarripa MD Primary Care Provider [phone] Encounter Details Date Type Department Care Team (Late st Contact Info) Description 08/09/2023 Clinisync Result Encounter [facility] Unsolicited Enrico Anne, DIRECTOR OF EXHIBIT DEVELOPMENT [address] , [address] [address] Social History Tobacco Use Types Packs/Day Years Used Date Smoking Tobacco: Never Assessed Comments Unknown Sex and Gender Information Value Date Recorded Sex Assigned at Not on file Legal Sex Female 8:06 PM EDT Gender Identity Not on file Sexual Orientation Not on file documented as of this encounter Plan of Treatment Not on file documented as of this encounter Procedures Procedure Name Priority Date/Time Associated Diagnosis Comments MR HEAD/BRAIN WO CON 08/09/2023 1:55 PM EDT documented in this encounter Results * MR HEAD/BRAIN WO CON (08/09/2023 1:55 PM EDT) Anatomical Region Laterality Modality Other 08/09/2023 1:55 PM EDT Narrative 08/09/2023 1:58 PM EDT The [address] [address] Magnetic Resonance Report Signed Patient: LUIS LESTER MR#: [id number] : 1960 Acct:[id number] Age/Sex: 62 / F ADM Date: 08/09/23 Loc: MRI Attending Dr: Enrico Anne DIRECTOR OF EXHIBIT DEVELOPMENT Ordering Physician: Enrico Anne NP Date of Service: 08/09/23 Procedure(s): MR head/brain wo con Accession Number(s): [id number] cc: Quinn Zamarripa M.D.; Enrico Anne NP The [place] [address] Patient Name: LUIS LESTER MRN: [facility]:[id number] date: 1960 Sex: F Assigned Patient Location: MRI Current Patient Location: MRI Accession/Order Number: [id number] Exam Date: 08/09/2023 13:00 Report Date: 08/09/2023 13:55 At the request of: ENRIOC ANNE Procedure: MR head/brain wo con MR head/brain wo con HISTORY: transient ischemic attack G45.9 COMPARISON: None. TECHNIQUE: Multi-planar, multi-sequence brain MRI was performed without IV contrast. FINDINGS: Brain volume: Normal. Sagittal midline structures: Normal. Ventricles: Normal. Acute ischemic changes: None. Hemorrhage: None. Masses/edema: None. Magana-white: Negative. White matter: A few punctate subcortical white matter hyperintensities. Vessels: Normal. Extra-axial: None. Calvarium/scalp: Negative. Skull base: Small left mastoid effusion. Visualized sinuses/orbits: Negative. Visualized upper neck: Negative. MR/MR head/brain wo con IMPRESSION: 1. No acute ischemia or intracranial hemorrhage. Electronically authenticated by: ADÁN SHIPMAN Date: 08/09/2023 13:55 Dictated By: Adán Shipman M.D. Signed By: 08/09/23 1358 DD/ 1355 TD/TT: Honey Extractor: Procedure Note Radiology, Radiologist, MD - 08/09/2023 [place] [address] Magnetic Resonance Report Signed Patient: LUIS LESTER MMR#: [id number] : 1960Acct:[id number] Age/Sex: 62 / FADM Date: 08/09/23 Loc: MRI Attending Dr: Enrico Anne NP Ordering Physician: Enrico Anne NP Date of Service: 08/09/23 Procedure(s): MR head/brain wo con Accession Number(s): [id number] cc: Quinn Zamarripa M.D.; Enrico Anne NP [place] [id number] Patient Name: LUIS LESTER MRN: [facility]:[id number] date: 1960 Sex: F Assigned Patient Location: MRI Current Patient Location: MRI Accession/Order Number: [id number] Exam Date: 08/09/2023 13:00 Report Date: 08/09/2023 13:55 At the request of: ENRICO ANNE Procedure: MR head/brain wo con MR head/brain wo con HISTORY: transient ischemic attack G45.9 COMPARISON: None. TECHNIQUE: Multi-planar, multi-sequence brain MRI was performed without IV contrast. FINDINGS: Brain volume: Normal. Sagittal midline structures: Normal. Ventricles: Normal. Acute ischemic changes: None. Hemorrhage: None. Masses/edema: None. Magana-white: Negative. White matter: A few punctate subcortical white matter hyperintensities. Vessels: Normal. Extra-axial: None. Calvarium/scalp: Negative. Skull base: Small left mastoid effusion. Visualized sinuses/orbits: Negative. Visualized upper neck: Negative. MR/MR head/brain wo con IMPRESSION: 1. No acute ischemia or intracranial hemorrhage. Electronically authenticated by: ADÁN SHIPMAN Date: 08/09/2023 13:55 Dictated By: Adán Shipman M.D. Signed By:08/09/23 1358 DD/ 1355 TD/TT: Honey Extractor: us Enrico Anne NP [facility] Final R esult documented in this encounter Visit Diagnoses Not on filedocumented in this encounter Care Teams Sand Mixer Operator Relationship Specialty Start Date End Date Quinn Zamarripa MD PCP - General Family Medicine 07/31/23 documented as of this encounter
--- OUTSIDE RECORDS SUMMARY | 2024-10-22 14:07 | XMS_ITS | Encounter Summary ---
Author Organization [facility] Address [id number] [address] [place] [address] Care Team Providers Care Rag Shredder Name Role Phone Quinn Zamarripa MD Primary Care Provider [phone] Encounter Details Date Type Department Care Team (Late st Contact Info) Description 07/02/2022 Orders Only [facility] [address] [place] [address] Ref Prov, [place] [address] Social History Tobacco Use Types Packs/Day Years Used Date Smoking Tobacco: Former Cigarettes 0 10/12/1982 - 10/12/2013 Smokeless Tobacco: Never Alcohol Use Standard Drinks/Week Comments Not Currently 0 (1 standard drink = 0.6 oz pur e alcohol) Childcare Answer Date Recorded Childcare Unknown 10/29/2018 Employment Answer Date Recorded Employment Unknown 10/29/2018 Purpose - Life Answer Date Recorded Purpose and direction in life Unknown Comments No Sex and Gender Information Value Date Recorded Sex Assigned at Not on file Legal Sex Female 11:23 AM EDT Gender Identity Not on file Sexual Orientation Not on file COVID-19 Exposure Response Date Recorded In the last month, have you been in contact with someone who was confirmed or suspected to have Coronavirus / COVID-19? No / Unsure 07/04/2022 1:48 PM EST documented as of this encounter Plan of Treatment Not on file documented as of this encounter Procedures Procedure Name Priority Date/Time Associated Diagnosis Comments VASC ARTERIAL DOPPLER LOWER LIMITED SINGLE (MADHAV) Routine 07/02/2022 documented in this encounter Results * Vas art doppler lwr limited single (07/02/2022) Anatomical Region Laterality Modality Vascular N/A Ultrasound us Not In System Ref Prov CV VASCULAR ORDERABLES Fi nal Result documented in this encounter Visit Diagnoses Not on filedocumented in this encounter Care Teams Rag Shredder Relationship Specialty Start Date End Date Quinn Zamarripa MD PCP - General Family Medicine 10/13/19 documented as of this encounter
--- OUTSIDE RECORDS SUMMARY | 2024-10-22 14:07 | XMS_ITS | Patient Health Record ---
Author Organization [facility] in [place] Address [address] [place] [address] Care Team Providers Care Superintendent Pipelines Name Role Phone Isacc Colunga Primary Care Provider [phone] Allergies Allergen (clinical drug ingredient) Drug/Non Drug Allergy documented on EMR Reaction Allergy Type Onset Date Status meperidine Demerol violently ill Drug Allergy Ac tive acetaminophen / oxycodone Percocet vomiting Drug Allergy Active azithromycin Zithromax vomiting Drug Allergy Acti ve Results Component Value Reference Range Notes FREE T3 Reviewed date:06/30/2024 12:47:06 PM Interpretation: Performing Lab: Notes/Report: [facility] , Free T3 2.54 2.18-3.98 pg/mL Performing Lab: see note ML - [facility] LB GLYCOHEMOGLOBIN A1C Reviewed date:06/30/2024 12:47:06 PM Interpretation: Performing Lab: Notes/Report: [facility] , Glycohemoglobin A1C 5.6 4.5-6.2 % ADA RECOMMENDED LIMIT 4.0 - 6.0 ADA THERAPEUTIC TARGET < 7.0 ACTION SUGGESTED > 7.0 Estimated Average Glucose 114 Performing Lab: see note ML - [facility] LB IRON Reviewed date:06/30/2024 12:47:06 PM Interpretation: Performing Lab: Notes/Report: [facility] , Iron 76.0 50.0-170.0 ug/dL Performing Lab: see note - [facility] LB LIPID PROFILE Reviewed date:06/30/2024 12:47:06 PM Interpretation: Performing Lab: Notes/Report: [facility] , Triglycerides 168 <=150 mg/dL Cholesterol 193 <=200 mg/dL HDL Cholesterol 43 40-60 mg/dL > or =60 mg/dl - LOW CARDIOVASCULAR RISK <40 mg/dl - HIGH CARDIOVASCULAR RISK LDL Cholesterol Calculated 117.0 <100 mg/dl OPTIMAL 100-129 mg/dl NEAR OR ABOVE OPTIMAL 130-159 mg/dl BORDERLINE HIGH 160-189 mg/dl HIGH >190 mg/dl VERY HIGH VLDL CHOLESTEROL 33.6 Chol HDL Ratio 4.5 3.3 - 4.4 LOW RISK 4.4 - 7.1 AVERAGE RISK 7.1 - 11.0 MODERATE RISK >11.0 HIGH RISK Performing Lab: see note - [facility] PROF 14(COMP METB) Reviewed date:06/30/2024 12:47:06 PM Interpretation: Performing Lab: Notes/Report: [facility] , Sodium 143 136-145 mmol/L Potassium 4.2 3.5-5.1 mmol/L Chloride 105 98-107 mmol/L Carbon Dioxide 29.3 21.0-32.0 mmol/L Anion Gap 12.9 Glucose 96 74-106 mg/dL Blood Urea Nitrogen 15.0 7.0-18.0 mg/dL Creatinine 0.80 0.55-1.02 mg/dL Estimated GFR ( Moriah >60 >=60 mL/min/1.73m 2 Estimated GFR (Non- Jeannine >60 >=60 mL/min/1.73m 2 BUN Creatinine Ratio 18.8 Calcium 8.9 8.5-10.1 mg/dL Bilirubin Total 0.4 0.2-1.0 mg/dL Aspartate Amino Transferase 15 15-37 U/L Alanine Aminotransferase 30 14-59 U/L Alkaline Phosphatase 71 46-116 U/L Total Protein 6.7 6.4-8.2 g/dL Albumin Level 3.8 3.4-5.0 g/dL Globulin 2.9 Albumin Globulin Ratio 1.3 Performing Lab: see note - [facility] LB T4 Reviewed date:06/30/2024 12:47:06 PM Interpretation: Performing Lab: Notes/Report: [facility] , T4 Thyroxine 6.80 4.80-13.90 ug/dL Performing Lab: see note ML - [facility] LB TSH Reviewed date:06/30/2024 12:47:06 PM Interpretation: Performing Lab: Notes/Report: [facility] , Thyroid Stimulating Hormone 1.878 0.358-3.740 uIU/mL Performing Lab: see note - [facility] LB CBC AUTO DIFF Reviewed date:06/30/2024 12:47:06 PM Interpretation: Performing Lab: Notes/Report: [facility] , White Blood Count 6.2 4.0-11.0 10 3/uL Red Blood Count 5.29 4.20-5.40 10 6/uL Hemoglobin 15.6 12.0-16.0 g/dL Hematocrit 46.7 36.0-48.0 % Mean Corpuscular Volume 88.3 81.0-99.0 fL Mean Corpuscular Hemoglobin 29.5 26.7-34.0 pg Mean Corpuscular HGB Conc 33.4 29.9-35.2 g/dL Red Cell Distribution Width 12.6 11.0-15.0 % Platelet Count 196 150-450 10 3/uL Mean Platelet Volume 9.9 9.5-13.5 fL Neutrophils Percent Auto 56.2 43.0-75.0 % Lymphocytes Percent Auto 21.4 20.5-60.0 % Monocytes Percent Auto 9.6 1.7-12.0 % Eosinophils Percent Auto 11.5 0.9-7.0 % Basophils Percent Auto 1.1 0.2-2.0 % Immature Granulocytes Pct Auto 0.2 0.0-0.5 % Neutrophils Absolute Auto 3.5 1.4-6.5 10 3/uL Lymphocytes Absolute Auto 1.3 1.2-3.8 10 3/uL Monocytes Absolute Auto 0.6 0.3-0.8 10 3/uL Eosinophils Absolute Auto 0.7 0.0-0.7 10 3/uL Basophils Absolute Auto 0.1 0.0-0.1 10 3/uL Immature Granulocytes Abs Auto 0.01 0.00-0.03 10 3/uL Performing Lab: see note ML - [facility] LB CT lung screening low-dose Reviewed date:08/11/2024 08:28:36 PM Interpretation: Performing Lab: Notes/Report: Source Facility: [facility]-[address] [place] [address] [place] [address] CT Scan Report Signed Patient: LUIS LESTER MR#: [id number] : 1960 Acct:[id number] Age/Sex: 63 / F ADM Date: 08/11/24 Loc: CT Attending Dr: Wiley Colunga M.D. Ordering Physician: Wiley Colunga M.D. Date of Service: 08/11/24 Procedure(s): CT lung screening low-dose Accession Number(s): [id number] cc: Wiley Colunga M.D. [place] [id number] Patient Name: LUIS LESTER MRN: [id number] date: 1960 Sex: F Assigned Patient Location: CT Current Patient Location: CT Accession/Order Number: [id number] Exam Date: 08/11/2024 14:12 Report Date: 08/11/2024 14:15 At the request of: WILEY COLUNGA MD Procedure: CT lung screening low-dose CT CHEST WITHOUT CONTRAST, LOW DOSE SCREENING: CLINICAL DATA: A 63-year old current smoker COMPARISON: Lung screening CT 06/25/2023 TECHNIQUE: Noncontrast axial CT scan images of the chest were obtained under the low dose screening CT protocol. Coronal and sagittal reconstructed images were also submitted. FINDINGS: Mediastinum : Suboptimal evaluation due to low-dose technique. Thoracic aorta appears normal in caliber. Pulmonary trunk appears nondilated. No pericardial effusion. No lymphadenopathy. The esophagus is grossly unremarkable. Large hiatal hernia. Lungs: No focal consolidation, pneumothorax or pleural effusion. Trachea and distal airways appear patent. Mild bibasilar atelectasis/scarring. No suspicious noncalcified pulmonary nodule or mass. Upper abdomen: No acute findings. Bony thorax and chest wall: Soft tissues surrounding the chest wall demonstrate no acute findings. Osseous structures demonstrate degenerative change. CT/CT lung screening low-dose IMPRESSION: NO SUSPICIOUS PULMONARY NODULE. LUNG - RADS Version 1.0 Assessment: Category 1, Negative (No nodules and definitely benign nodules). Management: Continue annual lung screening with LDCT in 12 months. Impression dictated by: Adán Castillo Jr. DToanOToan08/11/2024 2:15 PM Dictation Location: [facility] Electronically authenticated by: [id number] Y Date: 08/11/2024 14:15 Dictated By: Adán Castillo M.D. Signed By: 08/11/241417 DD/ 14 TD/TT: Cremator: [place] [address] CT Scan Report Signed Patient: JUDSON LESTER MR#: [id number] : 1960 Acct:[id number] Age/Sex: 63 / F ADM Date: 08/11/24 Loc: CT Attending Dr: Galina Colunga M.D. Ordering Physician: Wiley Colunga M.D. Date of Service: 08/11/24 Procedure(s): CT rosa g screening low-dose Accession Number(s): [id number] cc: Wiley Colunga M.D. [place] [address] Patient Name: LUIS LESTER MRN: [id number] date: 1960 Sex: F Assigned Patient Location: CT Current Patient Location: CT Accession/Order Number: [id number] Exam Date: 08/11/2024 14:12 Report Date: 08/11/2024 14:15 At the request of: WILEY COLUNGA MD Procedure: CT lung screening low-dose CT CHEST WITHOUT CONTRAST, LOW DOSE SCREENING: CLINICAL DATA: A 63-year old current smoker COMPARISON: Lung screening CT 06/25/2023 TECHNIQUE: Noncontra st axial CT scan images of the chest were obtained [facility]. Coronal and sagittal reconstructed images were also submitted. FINDINGS: Mediastinum : Suboptimal evaluation due to low-dose technique. Thoracic aorta appears normal in caliber. Pulmonary trunk appears nondilated. No pericardial effusion . No lymphadenopathy. The esophagus is grossly unremarkable. Large hiatal hernia. Lungs: No focal consolidation, pneumothorax or pleural effusion. Trachea and distal airways appea r patent. Mild bibasilar atelectasis/scarring. No suspicious noncalcified pulmonary nodule or mass. Upper abdomen: No acute findings. Bony thorax and ches t wall: Soft tissues surrounding the chest wall demonstrate no acute findings. Osseous structures demonstrate degenerative change. CT/CT lung screening low-dose IMPRESSION: NO SUSPICIOUS PULMONARY NODULE. LUNG - RADS Version 1.0 Assessment: Category 1, Negative (No nodules and definitely benign nodules). Management: Continue annual lung screening with LDCT in 12 months. Impression dictated by: Adán Castillo Jr., D.O.08/11/2024 2:15 PM Dictation Location: [place] [address] Electronically authenticated by: [id number] Y Date: 08/11/2024 14:15 Dictated By: Adán Castillo M.D. Signed By: 08/11/24 1418 DD/ 14 TD/TT: Cremator: Reason For Referral No Information Medications Medication SIG (Take, Route, Frequency, Duration) Notes Start Date End Date Status Diclofenac Sodium 75 MG 1 tablet as needed Orally Twice a day for 90 days 09/20/2023 Active Carvedilol 25 mg TAKE 1 TABLET BY MOUTH TWICE DAILY for 90 Active FeroSul 325 (65 Fe) MG 1 tablet Orally twice a day for 90 days Active DULoxetine HCl 60 MG 1 capsule Orally twice daily for 90 days Active lamoTRIgine 25 MG 1 tablet Orally BID for 90 days Active Glucometer - use daily R73.9 Daily 06/25/2023 Active Simvastatin 20 MG 1 tablet in the [...] CAPSULE BY MOUTH DAILY for 90 Active Immunizations Vaccine Route Administration Date Status Comme nts Flu, Fluad (47303) 65 yrs and older, single-dose syringe IM Intramuscular 03/26/2024 Administered Flu, Flucelvax (3596-0330) (07879) 6 mos +, single-dose syringe IM Intramuscular 04/05/2023 Administered Social History Tobacco Use: Social History Observation Description Date Details (start date - stop date) Former Smoker 05/20/1982 - 08/12/2022 Tobacco Use/Smoking Question Answer Notes Patient is a former smoker When did you start smoking? 05/20/1982 When did you stop smoking? 08/12/2022 How long has it been since you last smoked? 3-6 months Alcohol Screen (Audit-C) Question Answer Notes Did you have a drink containing alcohol in the p ast year? No Points 0 Interpretation Negative AUDIT-C (Standard) Question Answer Notes Did you have a drink containing alcohol in the p ast year? No Points 0 Interpretation Negative Problems Problem Type SNOMED Code ICD Code Onset Dates Problem Status W/U Status Risk Notes Problem 371029407 Peripheral vascular disease, unspecified (I73.9) Active confirmed Problem Hypertension (46863146) Hypertension (I10) Active confirmed Problem Hyperglycemia (61242396) Hyperglycemia (R73.9) Active confirmed Problem Depression (771407198) Depression (F32.9) Active confirmed Problem Gastritis (0743599) Gastritis (K29.70) Active confirmed Problem Well adult (390184062) Well adult (Z00.00) Active confirmed Problem Generalized arthritis (479588583) Generalized arthritis (M19.90) Active confirmed Problem Hemorrhage in optic nerve sheaths (96280575) Optic nerve hemorrhage, 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 [address] [place] [address] 09/28/2024 Isacc Colunga Screening for breast cancer Z12.31 [facility] [address] [place] [address] 02/10/2024 Isacc Colunga [facility] [address] [place] [address] 04/10/2024 Isacc Colunga [facility] [address] [facility] [place] [address] 04/23/[address] [facility] [address] [facility] [place] [address] 06/30/2024 Isacc Marilou [facility] [address] [place] [facility] [place] [address] 07/06/2024 Isacc Marilou Peripheral vascular disease, unspecified I73.9 [facility] [address] [facility] [place] [address] 08/11/2024 Isacc Colunga [facility] [address] [place] [facility] [place] [place] [address] 01/21/2024 Isacc Colunga [facility] [address] [place] [place] [address] 02/10/[address] [facility] [address] [facility] [place] [address] 12/25/2023 Isacc Marilou Hyperglycemia R73.9 ; Hypertension I10 ; Gastritis K29.70 [address] Generalized arthritis M19.90 [facility] [address] [facility] [place] [address] 01/31/2024 Isacc Marilou Acute bronchitis, unspecified organism J20.9 [place] [address] [facility] [place] [address] 03/26/2024 Isacc Marilou Peripheral vascular disease, unspecified I73.9 ; Hypertension I10 ; Encounter for immunization Z23 ; Hyperglycemia R73.9 ; Well adult Z00.00 ; Gastritis K29.70 and Depression F32.9 [place] [address] [facility] [place] [address] 07/01/2024 Isacc [place]razas[place]ie Hyperglycemia R73.9 ; Hypertension I10 ; Depression F32.9 and Diabetes E11.[address] [place] [address] 09/28/2024 Isacc Marilou Hypertension I10 ; Diabetes E11.9 ; Depression F32.9 ; Generalized arthritis M19.90 and Shoulder impingement, left M75.42 Assessments Encounter Date Diagnosis (ICD Code) Assessment Notes Treatment Notes Treatment Clinical Notes Section Notes 12/25/2023 Hyperglycemia (ICD-10 - R73.9) good now pmn a good diet 12/25/2023 Hypertension (ICD-10 - I10) good control - not low 03/26/2024 Peripheral vascular disease, unspecified (ICD-10 - I73.9) 03/26/2024 Hypertension (ICD-10 - I10) 01/31/2024 Acute bronchitis, unspecified organism (ICD-10 - J20.9) Rest and drink more liquids, especially water. You may use a humidifier or vaporizer to help keep the drainage moist. Muai-ubo-gxciphi Nasal Saline may help the stuffy and runny nose. Use Ibuprofen and or Tylenol as needed for fever, chills, body aches or pain. Children 5 years old should not be given ipvg-usf-zfksdxh cough and cold medications such as guaifenesin and dextromethorphan. If you're over age 5, you may try evny-rzu-hjaetjv cold medications such as guaifenesin and dextromethorphan, or multi-symptom cold reliever such as Dayquil to help reduce the symptoms. Antibiotics have been prescribed. You should take these until completed and follow the directions. Antibiotics can sometimes cause upset stomach, and in rare cases, serious allergic reactions or serious gastrointestinal problems. If you start having severe abdominal pain, severe vomiting, or bloody diarrhea, you should be reevaluated by your physician or urgent care immediately. Follow up with your Primary Care Provider or return to clinic if symptoms do not improve within 3-5 days. If you develop severe symptoms such as shortness of breath, repeated vomiting, coughing up blood, or chest pain you should go to the emergency room or call 911 07/01/2024 Hyperglycemia (ICD-10 - R73.9) 07/01/2024 Hypertension (ICD-10 - I10) 09/28/2024 Hypertension (ICD-10 - I10) 09/28/2024 Diabetes (ICD-10 - E11.9) 07/06/2024 Peripheral vascular disease, unspecified (ICD-10 - I73.9) 09/28/2024 Screening for breast cancer (ICD-10 - Z12.31) 09/28/2024 Depression (ICD-10 - F32.9) 07/01/2024 Depression (ICD-10 - F32.9) 03/26/2024 Encounter for immunization (ICD-10 - Z23) 12/25/2023 Gastritis (ICD-10 - K29.70) meds helping 12/25/2023 Generalized arthritis (ICD-10 - M19.90) meds working 03/26/2024 Hyperglycemia (ICD-10 - R73.9) 07/01/2024 Diabetes (ICD-10 - E11.9) 09/28/2024 Generalized arthritis (ICD-10 - M19.90) 09/28/2024 Shoulder impingement, left (ICD-10 - M75.42) MRIn neeedse - laxity in left shoiler like;ly torn rotator cuff - needs MRI 03/26/2024 Well adult (ICD-10 - Z00.00) 03/26/2024 Gastritis (ICD-10 - K29.70) 03/26/2024 Depression (ICD-10 - F32.9) Plan Of Treatment Pending Test Test Name Order Date CMP (COMPLETE METABOLIC PANEL) 3 CMP (COMPLETE METABOLIC PANEL) 4 HEMOGLOBIN A1C (GLYCO) 02/11/2023 HEMOGLOBIN A1C (GLYCO) 03/26/2024 IRON, TOTAL 03/26/2024 IRON, TOTAL 02/11/2023 LIPID PANEL (CHOL/TRIG/HDL/LDL) 02/12/20 23 LIPID PANEL (CHOL/TRIG/HDL/LDL) 03/26/20 24 CBC WITH DIFF 03/26/2024 CBC WITH DIFF 02/11/2023 VITAMIN D, 25 LEVEL (TOTAL) 02/11/2023 MAMM Mammograms CAD 05/22/2023 CT Chest Low Dose for Screening* 024 CBC W/AUTO DIFF 05/24/2023 STOOL OCCULT BLOOD 03/26/2024 MRI SHOULDER LT WO CON 09/28/2024 THYROID PANEL (T4/TSH/FREE T3) 4 THYROID PANEL (T4/TSH/FREE T3) 3 MM screening mammo BI 03/26/2024 MM diagnostic mammo BI 06/13/2023 BI MAMMOGRAM SCREENING TOMOSYNTHESIS JUANITA ATERAL 09/28/2024 CT CHEST LOW DOSE (LDCT) 07/01/2024 Next Appt Details Provider Name:Isacc Colunga, 01:15:00 PM, [address] [facility], [place], [address], Insurance Providers Payer Name Payer Address Payer Phone Subscriber Number Group Number Insured Name Patient Relationship to Insured Coverage Start Date Coverage End Date [employer]ARE ADV PLAN [address] [address] [place] [address] [id number] Bishop Luis Self - patient is the insured 4 MEDICAID [place] 2ND INS [address] OFF[place], [place] [id number] [phone] [id number] Judson Lesterin Self - patient is the insured 4 Medical (General) History Medical History History ICD Code Arthritis M19.90 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 Migraine G43.909 Depression F32.9 Diabetes E11.9 Diabetic neuropathy E11.40 Dysphagia R13.10 Diverticular disease of colon K57.30 Hypertension I10 GERD (gastroesophageal reflux disease) K 21.9 Hiatal hernia K44.9 Hyperlipidemia E78.5 Lumbar disc disease M51.9 Myalgia M79.10 Derangement of knee, left M23.92 Peripheral vascular insufficiency I73.9 Vertigo R42 Vitamin D deficiency E55.9 Surgical History Surgery Date(Month/Year) Colonoscopy 04/2022 Cysto 12/2020 Tonsillectomy Esophageal Dilation section x2 Carpal Tunnel Release Subtotal Medial Meniscectomy 10/2019 Chondroplasty Medial Femoral Condyle 10/19 020 Arthroscopy of Left knee 10/2019 Hospitalization History Reason Date(Month/Year) Migraine 10/2018
--- OUTSIDE RECORDS SUMMARY | 2024-10-22 14:07 | XMS_ITS | Clinical Summary ---
Author Organization [facility] Address [id number] [facility] [place] [address] Care Team Providers Care Rn Patient Services Name Role Phone Quinn Zamarripa MD Primary Care Provider [phone] Allergies Active Allergy Reactions Criticality Noted Date Comments Meperidine Vomiting 09/15/2019 Oxycodone-Acetaminophen Vomiting 09/15/2019 Azithromycin Vomiting 10/13/2019 Medications DULoxetine (CYMBALTA) 60 mg capsule Take 2 capsules (120 mg total) by mouth in the morning. 0 Active lamoTRIgine (LaMICtal) 25 mg tablet Take 1 tablet (25 mg total) by mouth in the morning and 1 tablet (25 mg total) before bedtime. 0 Active omeprazole (PriLOSEC) 40 mg capsule Take 1 capsule (40 mg total) by mouth in the morning. 0 Active piroxicam (FELDENE) 20 mg capsule Take 1 capsule (20 mg total) by mouth in the morning. 0 Active rosuvastatin (CRESTOR) 5 mg tablet Take 1 tablet (5 mg total) by mouth in the morning. 0 Active verapamiL (VERELAN) 360 MG 24 hr capsule Take 1 capsule (360 mg total) by mouth in the morning. 0 Active multivitamin capsule Take 1 capsule by mouth in the morning. Active cholecalciferol , vitamin D3, 2,000 units capsule Take 1 capsule (2,000 Units total) by mouth in the morning. Active evening primrose oil (EVENING PRIMROSE ORAL) Take 1,000 mg by mouth daily. Active carvediloL (COREG) 25 mg tablet Take 1 tablet (25 mg total) by mouth in the morning and 1 tablet (25 mg total) before bedtime. 3 Active sucralfate (CARAFATE) 1 gram tablet Take 1 tablet (1 g total) by mouth in the morning and 1 tablet (1 g total) at noon and 1 tablet (1 g total) in the evening and 1 tablet (1 g total) before bedtime. 3 Active varenicline (CHANTIX) 0.5 mg tablet take 1 tablet by mouth once daily for 3 days then 1 tablet twice ... (REFER TO PRESCRIPTION NOTES). 3 Active Active Problems Problem Noted Date Diagnosed Date Discoloration of skin of toe 07/30/2022 Overview (07/30/2022): Added automatically from request for surgery [id number] PVD (peripheral vascular disease) 07/30/2022 Overview (07/30/2022): Added automatically from request for surgery [id number] Acute medial meniscus tear of left knee 10/07/19 Overview (10/07/2019): Added automatically from request for surgery [id number] Family History Medical History Relation Name Comments Cancer Father Heart disease Father Hyperlipidemia Father Pancreatic cancer Mother Relation Name Status Comments Father Alive Mother Social History Tobacco Use Types Packs/Day Years Used Date Smoking Tobacco: Every Day Cigarettes Started: 10/12/1982 Smokeless Tobacco: Never Tobacco Cessation:Ready to Q uit: Yes; Counseling Given: Yes Alcohol Use Standard Drinks/Week Comments Not Currently 0 (1 standard drink = 0.6 oz pur e alcohol) Childcare Answer Date Recorded Childcare Unknown 10/29/2018 Employment Answer Date Recorded Employment Unknown 10/29/2018 Hunger Screening Answer Date Recorded Within the past 12 months we worried whether our food would run out before we got money to buy more. Never True 11/29/2022 Within the past 12 months th e food we bought just didn't last and we didn't have money to get more. Never True 11/29/2022 Purpose - Life Answer Date Recorded Purpose and direction in life Unknown Comments No Sex and Gender Information Value Date Recorded Sex Assigned at Not on file Legal Sex Female 11:23 AM EDT Gender Identity Not on file Sexual Orientation Not on file Last Filed Vital Signs Vital Sign Reading Time Taken Comments Blood Pressure 154/92 11/29/2022 10:28 AM EDT Pulse 74 11/29/2022 10:28 AM EDT Temperature 36.7 C (98 F) 08/02/2022 11:53 AM EDT Respiratory Rate 24 08/02/2022 4:05 PM EDT Oxygen Saturation 97% 08/02/2022 4:05 PM EDT Inhaled Oxygen Concentration - - Weight 79.1 kg (174 lb 6.4 oz) 11/29/2022 10:27 AM EDT Height 157.5 cm (5' 2 ) 11/29/2022 10:27 AM EDT Body Mass Index 31.9 11/29/2022 10:27 AM EDT Plan of Treatment Health Maintenance Due Date Last Done Comments Depression Screening 1974 DTaP,Tdap and Td Vaccines (1 - Tdap) 1981 Adult BMI Screening 2023 11/29/2022 Tobacco Screening 2023 11/29/2022 COVID-19 Vaccine ( - 2023-2 5 season) 2024 03/24/2022, 09/28/2021, 03/14/2021, Additional history exists Influenza Vaccine 01/18/2025 04/28/2022, , 02/15/2021, Additional history exists Zoster (Shingles) Vaccine Completed 07/28/2022, 02/2022 Medical Devices Not on file Insurance [employer] Care Teams Rn Patient Services Relationship Specialty Start Date End Date Quinn Zamarripa MD PCP - General Family Medicine 10/13/19
--- NOTE | 2024-10-22 14:08 | MM_ITS ---
Patient Name: LINDSEY LESTER MR#: [id number] : 1960 Exam Date: 10/22/2024 Ordering Doctor: DR WILEY COLUNGA . RADIOLOGY REPORT PROCEDURE: MM TOMOSYNTHESIS SCREENING BI COMPARISON: MM TOMOSYNTHESIS DIAGNOSTIC BI, 06/25/2023. MG MAMM SCREEN 3D JUANITA CAD, 06/16/2021. MG MAMM JUANITA SCRN W CAD DIG, 03/22/2015. INDICATIONS: Screening Calculator Name NCI Breast Cancer Risk Assessment Tool 5 Year Breast Cancer Risk 3.00% Lifetime Breast Cancer Risk 14.00% Personal Breast Cancer No Personal Ovarian Cancer No Treatments None Family Cancers Mother with breast cancer at age 60; Mother with pancreatic cancer at age 60; Father with prostate cancer at age 69; Aunt-maternal with breast cancer at age 60; Aunt-maternal with neck cancer at age 50; Aunt-paternal with unknown cancer at age 80. LOCATION: [facility] BREAST COMPOSITION: There are scattered areas of fibroglandular density. FINDINGS: RIGHT BREAST: No significant suspicious finding. Similar focal asymmetries are present. Benign-appearing calcifications are present. LEFT BREAST: No significant suspicious finding. Similar benign-appearing calcifications are present. DIAGNOSTIC CATEGORY 2--BENIGN FINDING: RECOMMENDATIONS: ROUTINE MAMMOGRAM AND CLINICAL EVALUATION IN 12 MONTHS. PLEASE NOTE: A NORMAL MAMMOGRAM DOES NOT EXCLUDE THE POSSIBILITY OF BREAST CANCER. A CLINICALLY SUSPICIOUS PALPABLE LUMP SHOULD BE BIOPSIED. Dictated by: Adrián Nevarez MD on 10/22/2024 at 15:43 Approved by: Adrián Nevarez MD on 10/22/2024 at 15:46
--- NOTE | 2024-10-22 14:08 | MR_ITS ---
[address] [address] Patient Name: LINDSEY LESTER MRN: [id number] date: 1960 Sex: F Assigned Patient Location: MRI Current Patient Location: MRI Accession/Order Number: [id number] Exam Date: 10/22/2024 15:44 Report Date: 10/22/2024 15:49 At the request of: WILEY COLUNGA MD Procedure: MR shoulder LT wo con MRI left Shoulder without contrast TECHNIQUE: Multiplanar T1 and T2-weighted imaging obtained without contrast. HISTORY: Chronic left shoulder pain. Weakness. 5 laceration COMPARISON: None BONE MARROW EDEMA: No bone contusion. FRACTURE: No linear fracture AC JOINT: Extensive arthrosis. Subchondral bone marrow edema and adjacent soft tissue edema. Marginal spurring. Effacement of the supraspinatus tendon. SHOULDER ROOF LIGAMENTS: The coracoacromial and coracoclavicular ligaments are intact. ROTATOR CUFF: Thickening and heterogeneous signal changes of the supraspinatus tendon near the greater tuberosity insertion. High-grade tendinosis. No retracted full-thickness tear. Infraspinatus intact. Subscapularis tendon intact. Teres minor intact. Adequate rotator cuff musculature ROTATOR CUFF INTERVAL: Unremarkable BURSAL FLUID: Small subacromial subdeltoid bursal fluid suggesting bursitis. GLENOID: Labral degenerative fraying. No labral tear. Moderate glenohumeral degeneration. 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 BICEPS LABRAL COMPLEX: Intact LONG HEAD OF BICEPS TENDON: Intact GLENOHUMERAL LIGAMENTS: The superior glenohumeral ligament is intact. The middle glenohumeral ligament is intact. The anterior and posterior glenohumeral ligaments are intact. JOINT EFFUSION: No significant joint effusion is seen. MUSCLES: Normal signal intensity of the muscles. NO SUBCUTANEOUS TISSUES: No subcutaneous abnormalities identified. MR/MR shoulder LT wo con IMPRESSION: Supraspinatus tendinosis, high-grade. No retracted full-thickness tear. Mild subacromial subdeltoid bursal bursitis. Extensive acromioclavicular degeneration. Mild glenohumeral degeneration. Impression dictated by: Reagan Dougherty M.D. 10/22/2024 3:49 PM Dictation Location: [place] [address] Electronically authenticated by: [id number] Y Date: 10/22/2024 15:49
== END 2024-10-22 14:06 | disposition home or self-care (01) ==
LOC: MRI 14:05
PROVIDERS: PCP Family Medicine; Visit Provider Family Medicine
DX: M75.42 Impingement syndrome of left shoulder (principal); Z12.31 Encounter for screening mammogram for malignant neoplasm of breast; M75.82 Other shoulder lesions, left shoulder; Z80.3 Family history of malignant neoplasm of breast; Z80.8 Family history of malignant neoplasm of other organs or systems; Z80.42 Family history of malignant neoplasm of prostate
CPT/HCPCS: 73221; 77063; 77067